=== PATIENT | male | born 1950 | race Caucasian/White ===

== ENCOUNTER → 2016-08-29 | Outpatient (CLI) | payer OTHER ==
[~2016-08-29] MED LIST: IOPAMIDOL (ISOVUE-300) 50 ML VIAL IV ONE
--- NOTE | 2016-08-29 12:23 | CT ---
CT abdomen with IV contrast dated August 29, 2016 Indication: Hepatocellular carcinoma. Evaluate response to TACE of segment 4A lesion. Comparison: CT of the abdomen dated March 29, 2016 and June 15, 2016. Technique: The abdomen was scanned during arterial, portal venous phase and following a 5-minute yandel y following the uneventful intravenous administration of 90 mL Isovue-300. Dose reduction techniques were utilized. Findings: No residual hypervascular lesion on the arterial phase. The dense lobulated Lipiodol versus dystrophic calcification has increased in size since May 2016, and now conforms to the size of t he hypervascular lesion on the March 2016 study. The dense staining/calcification in the anterior se gment right lobe of the liver (segment 4) now measures 2.9 x 2.1 cm on image 44 of series 6. No new hypervascular lesion. A benign 1-cm fluid attenuation cyst in the right lobe of the liver is u nchanged. New nonocclusive thrombus has developed in the undivided left portal vein along the medial margin of the treated lesion (best demonstrated on images 46 through 56 of series 6). The intrahepatic portal v enous system is otherwise widely patent. The eccentric nonocclusive thrombus in the periphery of the splenic vein near the splenic hilum has nearly completely resolved and the nonocclusive thrombus at t he confluence of the superior mesenteric vein and splenic vein is unchanged. The nodular cirrhotic contour of the liver, numerous portosystemic collaterals, and marked splenomega ly are unchanged. The spleen measures 22 cm craniocaudal x 8.7 x 16 cm with a splenic index of 1592. Mesenteric edema is unchanged. No ascites has developed. The pancreas, adrenal glands, and kidneys are normal. No nephrolithiasis or hydroureteronephrosis. The bowel pattern is normal. No bowel wall edema or evidence of portal colopathy. Lung bases are clear. No pleural effusion. Heart size is normal. The abdominal aorta is normal calibe r with minimal calcified plaque. No bone lesions. Impression: 1. No evidence of residual enhancing hepatoma. The segment 4 lesion has either been retreated with L ipiodol or has undergone dystrophic calcification since May 2016. 2. No new lesion suspicious for hepatoma. 3. Cirrhosis, splenomegaly, and mild mesenteric edema are unchanged. 4. 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 5. 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 6. No evidence of metastatic disease or acute intra-abdominal process.
== END ==
LOC: FIMAGING 09:06
DX: Z85.05 Personal history of malignant neoplasm of liver (principal); K74.60 Unspecified cirrhosis of liver; R16.1 Splenomegaly, not elsewhere classified; R60.9 Edema, unspecified; I81 Portal vein thrombosis
CPT/HCPCS: 74160; Q9967

== ENCOUNTER → 2016-12-26 | Outpatient (CLI) | payer OTHER | LOC: FIMAGING 14:57 | PROVIDERS: ATTEND Internal Medicine Gastroenterology | DX: Z12.2 Encounter for screening for malignant neoplasm of respiratory organs (principal); R91.1 Solitary pulmonary nodule; C22.0 Liver cell carcinoma ==

== ENCOUNTER 2017-04-04 13:37 | Emergency (ER) | payer OTHER ==
[2017-04-04 14:55] LABS: % IMMATURE GRANULYOCYTES 0.5 % (0.0-1.1); ABSOLUTE IMMATURE GRANULOCYTES 0.03 10^3/uL (0.00-0.10); ADD DIFF? NO; ADD MORPH? NO; ADD SCAN? NO; ATYPICAL LYMPHOCYTE FLAG 0 (0-99); FRAGMENT RBC FLAG 0 (0-99); HEMATOCRIT 39.6 % (40.0-51.0); HEMOGLOBIN 13.4 g/dL (13.7-17.5); LEFT SHIFT FLG 0 (0-99); LIPEMIA HEMOLYSIS FLAG 90 (0-99); MEAN CELL HEMOGLOBIN 31.8 pg (27.9-34.1); MEAN CELL HEMOGLOBIN CONCENTR. 33.8 g/dL (32.4-36.7); MEAN CELL VOLUME 93.8 fL (81.5-99.8); MEAN PLATELET VOLUME 12.7 fL (8.7-11.7); PLATELET CLUMPS FLAG 0 (0-99); PLATELET COUNT 55 10^3/uL (150-400); RED BLOOD CELL COUNT 4.22 10^6/uL (4.40-6.38); RED CELL DISTRIBUTION WIDTH 16.7 % (11.5-15.2)
[2017-04-04 15:03] LABS: ALANINE AMINOTRANSFERASE 196 IU/L (21-72); ALKALINE PHOSPHATASE 189 IU/L (38-126); ANION GAP 9 mEq/L (8-16); ASPARTATE AMINOTRANSFERASE 182 IU/L (17-59); BILIRUBIN,TOTAL 5.7 mg/dL (0.1-1.4); BILIRUBIN-CONJUGATED 1.8 mg/dL (0.0-0.5); BILIRUBIN-UNCONJUGATED 3.9 mg/dL (0.0-1.1); CALCIUM 8.2 mg/dL (8.5-10.4); CARBON DIOXIDE 21 mEq/l (22-31); CHLORIDE 106 mEq/L (97-110); CREATININE 0.8 mg/dL (0.7-1.3); GLOMERULAR FILTRATION RATE > 60; GLUCOSE 86 mg/dL (70-100); POTASSIUM 3.6 mEq/L (3.5-5.2); SODIUM 136 mEq/L (134-144)
--- NOTE | 2017-04-04 15:08 | EDPHY ---
H & P Time Seen by Provider: 04/04/17 14:44 HPI/ROS: CHIEF COMPLAINT: Abdominal distention HISTORY OF PRESENT ILLNESS: 66-year-old male with hepatocellular carcinoma presents with abdominal distention. 3 days ago he had a tase procedure and intra arterial chemotherapy. Since then he has had abdominal distension. The distention is moderate and is associated with frequent hiccups. He denies abdominal pain, fever, vomiting or diarrhea. He usually receives his care at the [facility]. REVIEW OF SYSTEMS: Constitutional: No fever, no chills Eyes: No visual changes ENT: No sore throat Respiratory: No cough, no shortness of breath Cardiac: No chest pain Genitourinary: No hematuria, no dysuria Musculoskeletal: No leg pain or swelling Skin: No rash Neurological: No headache, no weakness Psychiatric: No depression Past Medical/Surgical History: Hepatocellular carcinoma Social History: Smoking Status: Never smoked Physical Exam: General Appearance: Alert, pleasant Eyes: Pupils equal and round, no conjunctival pallor or injection ENT, Mouth: Mucous membranes moist Neck: Normal inspection Respiratory: Lungs are clear to auscultation Cardiovascular: Regular rate and rhythm Gastrointestinal: Abdomen is soft, distended, no tenderness, hyperactive bowel sounds Neurological: A&O, nonfocal exam Skin: Warm and dry, no rash Extremities: Nontender, no pedal edema Psychiatric: Mood and affect normal Constitutional: Initial Vital Signs Temperature (C) 37.1 C 04/04/17 13:52 Heart Rate 98 04/04/17 13:52 Respiratory Rate 18 04/04/17 13:52 Blood Pressure 131/84 H 04/04/17 13:52 O2 Sat (%) 93 04/04/17 13:52 O2 Delivery Mode Room Air O2 (L/minute) 2 Allergies/Adverse Reactions: No Known Allergies Allergy (Verified 04/04/17 13:50) Home Medications: Medication Instructions Recorded Herbals/Supplements -Info Only 1 ea PO DAILY 02/11/16 Lactulose [Cephulac 20 gm/30 ml 20 gm PO BID 02/11/16 oral soln (*)] Levothyroxine [Synthroid 150 mcg 150 mcg PO HS 02/11/16 (*)] Magnesium Oxide [Magnesium Oxide 400 mg PO Q2D 02/11/16 400 mg (*)] Multivitamins [Multivitamin (*)] 1 each PO DAILY 02/11/16 Leiter-3 Fatty Acids [Fish Oil 1000 1,000 mg PO BID 02/11/16 mg (*)] Omeprazole [Prilosec 20 mg] 20 mg PO HS 02/11/16 Sildenafil Citrate [Viagra] 100 mg PO DAILY PRN 02/11/16 Testosterone IM [Testosterone 0.25 ml IM Q21D 02/11/16 100mg/ml IM inj (*)] Metoclopramide HCl 04/04/17 Ms Contin 04/04/17 Medical Decision Making - Diagnostics Imaging Results: Imaging Impressions Abdomen Ultrasound 04/04/17 15:08 Impression: 1. Small amount of ascites. 2. Cirrhosis with small nodular coarse hepatic parenchyma which limits evaluation for focal lesions. Consider additional imaging if clinically indicated. 3. Patent main portal vein. 4. Splenomegaly and splenic varices. 5. No hydronephrosis. 6. Previous cholecystectomy with common bile duct 9 mm. Findings discussed with Emergency Department physician, Hannah Alcantar, at 1629 hours, 04/04/2017. Final report concurs with initial preliminary interpretation. E:jm Chest X-Ray 04/04/17 15:16 Impression: 1. Possibly a new upper sternal stress fracture. Consider CT or MRI for further evaluation. 2. If the patient receives a CT, evaluation for interstitial lung disease can be performed at the same time using HRCT technique. 3. Suspicious for splenomegaly. Abdomen X-Ray 04/04/17 16:36 Impression: 1. Nonspecific air-filled distention of mid abdominal small bowel loop. 2. Suspect ascites. ED Course/Re-evaluation: d/w Dr. Zambrano's RN--requests abdominal ultrasound, chest x-ray and labs. 16:45 Reassessed patient. Continues to deny abdominal pain. He still feels abdominal bloating and is mainly concerned about the hiccups. Relayed imaging results. Plan for abdominal x-rays. 18:[address] Mccain, engineering operations leader for Dr. Zambrano. Reviewed lab/imaging results. LFTs are slightly higher than before the procedure. Ok for d/c home. Would like the patient to follow up in the morning for repeat lab work. Return soon for worsening symptoms. I spoke with the patient and he is very happy to go home. He will follow up tomorrow as planned. Differential Diagnosis: Differential diagnosis includes though it is not limited to appendicitis, SBP, cholecystitis, diverticulitis, pyelonephritis, bowel perforation, small bowel obstruction. - Data Points Laboratory Results: Laboratory Results 04/04/17 14:30 04/04/17 14:30 04/04/17 04/04/17 04/04/17 14:30 14:30 14:30 WBC 5.61 10^3/uL 10^3/uL (3.80-9.50) RBC 4.22 10^6/uL L 10^6/uL (4.40-6.38) Hgb 13.4 g/dL L g/dL (13.7-17.5) Hct 39.6 % L % (40.0-51.0) MCV 93.8 fL fL (81.5-99.8) MCH 31.8 pg pg (27.9-34.1) MCHC 33.8 g/dL g/dL (32.4-36.7) RDW 16.7 % H % (11.5-15.2) Plt Count 55 10^3/uL L 10^3/uL (150-400) MPV 12.7 fL H fL (8.7-11.7) Neut % (Auto) 82.4 % H % (39.3-74.2) Lymph % (Auto) 4.6 % L % (15.0-45.0) [place] % (Auto) 11.4 % % (4.5-13.0) Eos % (Auto) 0.9 % % (0.6-7.6) Baso % (Auto) 0.2 % L % (0.3-1.7) Nucleat RBC Rel Count 0.0 % % (0.0-0.2) Absolute Neuts (auto) 4.62 10^3/uL 10^3/uL (1.70-6.50) Absolute Lymphs (auto) 0.26 10^3/uL L 10^3/uL (1.00-3.00) Absolute Monos (auto) 0.64 10^3/uL 10^3/uL (0.30-0.80) Absolute Eos (auto) 0.05 10^3/uL 10^3/uL (0.03-0.40) Absolute Basos (auto) 0.01 10^3/uL L 10^3/uL (0.02-0.10) Absolute Nucleated RBC 0.00 10^3/uL 10^3/uL (0-0.01) Immature Gran % 0.5 % % (0.0-1.1) Immature Gran # 0.03 10^3/uL 10^3/uL (0.00-0.10) PT 22.3 SEC H SEC (12.0-15.0) INR 1.94 H (0.83-1.16) Sodium 136 mEq/L mEq/L (134-144) Potassium 3.6 mEq/L mEq/L (3.5-5.2) Chloride 106 mEq/L mEq/L (97-110) Carbon Dioxide 21 mEq/l L mEq/l (22-31) Anion Gap 9 mEq/L mEq/L (8-16) BUN 19 mg/dL mg/dL (7-23) Creatinine 0.8 mg/dL mg/dL (0.7-1.3) Estimated GFR > 60 Glucose 86 mg/dL mg/dL (70-100) Calcium 8.2 mg/dL L mg/dL (8.5-10.4) Total Bilirubin 5.7 mg/dL H mg/dL (0.1-1.4) Conjugated Bilirubin 1.8 mg/dL H mg/dL (0.0-0.5) Unconjugated Bilirubin 3.9 mg/dL H mg/dL (0.0-1.1) AST 182 IU/L H IU/L (17-59) ALT 196 IU/L H IU/L (21-72) Alkaline Phosphatase 189 IU/L H IU/L (38-126) Total Protein 6.0 g/dL L g/dL (6.3-8.2) Albumin 3.0 g/dL L g/dL (3.5-5.0) Lipase 25.0 IU/L IU/L (23-300) Departure - Departure Disposition: Home, Routine, Self-Care Clinical Impression: Abdominal distension Condition: Good Instructions: Abdominal Pain (ED) Additional Instructions: 1. Follow up with Dr. Zambrano's office tomorrow morning as we discussed for repeat evaluation. 2. Have your blood drawn tomorrow morning. Take the lab slip. 3. Return to the emergency department for abdominal pain, fever, vomiting, or other concerns. Referrals: Jessy Sheth [Primary Care Provider] - As per Instructions BRITTANIE ZAMBRANO [Non Staff Provider ()] - As per Instructions
[2017-04-04 18:19] LABS: INR 1.94 (0.83-1.16); PROTIME(PATIENT) 22.3 SEC (12.0-15.0)
[2017-04-04 18:55] VITALS: BP 121/76; PULSE 91; RESP 18; TEMP 98.2; O2SAT 94
== END 2017-04-04 18:57 | disposition home or self-care (01) ==
DX: R14.0 Abdominal distension (gaseous) (principal)

== ENCOUNTER 2017-09-21 16:37 | Inpatient (IN) | payer OTHER ==
[2017-09-21] MEDS ORDERED: NS 1,000 ML IV ONE ×2 (17:34→21:08)
--- NOTE | 2017-09-21 17:38 | EDPHY ---
H & P Time Seen by Provider: 09/21/17 16:48 HPI/ROS: Chief complaint. Shortness of breath HPI. 67-year-old male presents emergency department with shortness of breath for 1-2 days. Patient has metastatic liver disease. His oncologist is at [facility], [place]. He had a thoracentesis 3-4 days ago for pleural effusion. He also has ascites. He was better however now again he has exertional dyspnea. He has some generalized upper abdominal discomfort. No nausea vomiting or diarrhea. No illness including fever or cough. Patient has a history of liver cancer with cirrhosis and pleural effusion. He tells me that he is not sick again without fever cough. He has no chest pain. No nausea or vomiting. Apparent decreased oral intake. He tells me he has urinated only 1 time in the past 24 hr. ROS Constitutional. Generalized weakness Eyes. no problems with vision ENT. no sore throat, no nasal drainage Cardiovascular. no chest pain Respiratory. Exertional dyspnea Abdominal. Abdominal distension and upper abdominal discomfort . no problems urinating MS. no calf pain/swelling, no neck/back pain, no joint pain Skin. no rash Lymph. no swollen glands Neuro. Difficulty walking secondary to shortness of breath Past Medical/Surgical History: Past medical history liver cancer, hepatitis-C, encephalopathy, cirrhosis, cholecystectomy, appendectomy, recent thoracentesis Social History: , nonsmoker, no alcohol Smoking Status: Never smoked Physical Exam: General Appearance: Alert jaundiced male moderate distress vital signs initially show blood pressure 159/83 then subsequently 68/48. At 5:35 p.m. blood pressure 82/45 Eyes: Both eyes are jaundiced. ENT, Mouth: Mucous membranes are moist. Respiratory: No retractions. Decreased breath sounds on left Cardiovascular: Regular rate and rhythm. Gastrointestinal: Abdomen is distended. There is ascites. No masses. No focal areas of tenderness but diffuse upper abdominal tenderness Neurological: Awake and alert, sensory and motor exams grossly normal. Skin: Warm and dry, no rashes. Musculoskeletal: Neck is supple nontender. Extremities symmetrical, full range of motion. Psychiatric: Patient is oriented X 3, there is no agitation. Constitutional: Initial Vital Signs Temperature (C) 36.7 C 09/21/17 16:41 Heart Rate 96 09/21/17 16:41 Respiratory Rate 22 H 09/21/17 16:41 Blood Pressure 159/83 H 09/21/17 16:41 O2 Sat (%) 93 09/21/17 16:41 O2 Delivery Mode Room Air Allergies/Adverse Reactions: No Known Allergies Allergy (Verified 09/21/17 16:39) Home Medications: Medication Instructions Recorded Magnesium Oxide [Magnesium Oxide 400 mg PO BID 02/11/16 400 mg (*)] Herbals/Supplements -Info Only 1 ea PO DAILY 09/22/17 Lactulose 20 gm PO QID PRN 09/22/17 Lidocaine/Prilocaine [Emla Cream 1 junior TP PRN PRN 09/22/17 (RX)] Multivitamins [Multivitamin (*)] 1 each PO DAILY 09/22/17 Omeprazole 20 mg PO DAILY 09/22/17 Rifaximin [Xifaxan 200mg (*)] 550 mg PO BID 09/22/17 Spironolactone [Aldactone 25 MG 100 mg PO DAILY 09/22/17 (*)] Tamsulosin HCl [Flomax 0.4 MG (*)] 0.4 mg PO DAILY 09/22/17 morphINE IR [morphINE IR 15 mg (*)] 15 mg PO DAILY PRN 09/22/17 morphINE SR [MS Contin/Oramorph SR 30 mg PO BID 09/22/17 30 mg (*)] Medical Decision Making - Diagnostics Imaging Results: Chest x-ray interpreted by me shows no evidence of pneumonia or pleural effusion. Large amount air in the stomach Procedures: IV normal saline, monitor Due to the patient's decreased blood pressure after normal blood pressure on presentation I did add serum lactate to the patient's labs. Lactate comes back elevated. Sepsis is declared and patient is given 30 milliliters/kilogram fluid bolus. Blood cultures are obtained. Following lack of response to fluid bolus the patient is then begun on norepinephrine through his port. After blood cultures patient is given a g of Invanz however there is no evidence for infection at this time. ED Course/Re-evaluation: I consulted and discussed case with Dr. Cota who agrees to the admission. He asks me to discussed with the family the patient's wishes for palliative care verses ICU. If the family would prefer palliative care that the patient will be admitted to a [facility] bed. If they request intensive medical care the patient will be admitted to the ICU on pressors. I began to discuss this with the patient however his has left the room to make a phone call. He asks me to wait until the returns to have the discussion. The patient's is gone nearly an hour. When she returns patient, the and I discussed their wishes for care. I had a long conversation with the patient and his regarding their wishes for ICU versus palliative care. The patient continues to have quite low blood pressure on the order of 60/40 despite fluids. The family is somewhat surprised that the patient is so sick. They would like ICU care including pressors for blood pressure. I consulted and discussed the case again with Dr. Cota and expressed the family's wishes for ICU an intensive medical care Patien has a port that we will access. He is given Invanz as antibiotic. He is given norepinephrine for blood pressure as well as the 30 milliliter/ kilogram fluid bolus. Differential Diagnosis: I do not think that this patient has sepsis. He has markedly elevated lactate but I think that the he is dehydrated and likely 3rd spacing. There is no evidence for infection. Patient presented with complaint of shortness of breath which he has had before and apparently has recently had a thoracentesis. I initially thought that the patient had a pleural effusion. His presenting blood pressure was relatively normal and then he became hypotensive in the emergency department precipitating a septic workup with lactate being added to regular labs and then being found to be elevated we pursued the ED sepsis tract. He has end-stage liver disease and markedly abnormal LFTs. He has new renal insufficiency with previous creatinine around 1.2 and now today 2.4. He has ascites as well. Despite volume resuscitation with 30 milliliter/kilogram fluid bolus the patient remains hypotensive and so is begun on norepinephrine according to the family's wishes. Critical Care Time: Critical care time exclusive procedures 1 hr - Data Points Laboratory Results: Laboratory Results 09/21/17 17:15 09/21/17 17:15 Medications Given: Dextrose (Dextrose 50% Syringe) 25 gm IVP PRN PRN PRN Reason: Hypoglycemia Stop: 03/20/18 22:39 Last Admin: 09/22/17 03:21 Dose: 12.5 gm Hydromorphone HCl (Dilaudid) 0.5 - 1 mg IVP Q3HRS PRN PRN Reason: Pain, Severe Unable to Take PO Stop: 10/01/17 22:25 Last Admin: 09/22/17 05:14 Dose: 1 mg Vasopressin/Dextrose (Vasopressin 0.1 Unit/Ml (Premix)) 250 mls @ 24 mls/hr IV CONT MONICA Stop: 03/20/18 22:59 Last Admin: 09/22/17 08:43 Dose: 250 mls Sodium Bicarbonate 150 meq/ (Dextrose) 1,150 mls @ 100 mls/hr IV CONT MONICA Stop: 03/21/18 04:59 Last Admin: 09/22/17 05:13 Dose: 1,150 mls Rifaximin (Xifaxan) 550 mg PO BID MONICA PRN Reason: Protocol Stop: 10/22/17 08:59 Last Admin: 09/22/17 11:39 Dose: Not Given Discontinued Medications Ertapenem (Invanz) 1 gm IVP EDNOW ONE PRN Reason: Protocol Stop: 09/21/17 20:19 Last Admin: 09/21/17 20:45 Dose: 1 gm Furosemide (Lasix Injection) 10 mg IVP ONCE ONE Stop: 09/22/17 03:59 Last Admin: 09/22/17 04:59 Dose: Not Given Sodium Chloride (Ns) 1,000 mls @ 0 mls/hr IV EDNOW ONE; Wide Open PRN Reason: Protocol Stop: 09/21/17 17:35 Last Admin: 09/21/17 18:05 Dose: 1,000 mls Sodium Chloride (Ns) 2,200 mls @ 4,400 mls/hr 30 ml/kg infuse over 30 min ( 2200 ml) IV EDNOW ONE PRN Reason: Protocol Stop: 09/21/17 19:34 Last Admin: 09/21/17 19:15 Dose: 2,200 mls Norepinephrine/Sodium Chloride (Norepinephrine 8 Mcg/Ml (Premix)) 500 mls @ 0 mls/hr IV EDNOW ONE; Titrate PRN Reason: Protocol Stop: 09/21/17 20:19 Last Admin: 09/21/17 21:10 Dose: 500 mls Sodium Chloride (Ns) 1,000 mls @ 250 mls/hr IV EDNOW ONE PRN Reason: Protocol Stop: 09/22/17 01:07 Last Admin: 09/21/17 21:11 Dose: 1,000 mls Norepinephrine/Sodium Chloride (Norepinephrine 8 Mcg/Ml (Premix)) 500 mls @ 0 mls/hr IV CONT MONICA; Titrate PRN Reason: Protocol Stop: 03/20/18 22:59 Last Admin: 09/21/17 22:37 Dose: 500 mls Sodium Chloride (Ns) 1,000 mls @ 100 mls/hr IV CONT MONICA Stop: 03/20/18 22:29 Last Admin: 09/21/17 22:39 Dose: 1,000 mls Albumin Human (Albumin 25 % (Premix)) 50 mls @ 0 mls/hr IV ONCE ONE PRN Reason: As Directed Stop: 09/21/17 22:45 Last Admin: 09/21/17 22:58 Dose: 50 mls Norepinephrine/Sodium Chloride (Norepinephrine 8 Mcg/Ml (Premix)) 500 mls @ 0 mls/hr IV CONT MONICA; Titrate PRN Reason: Protocol Stop: 03/21/18 03:29 Last Admin: 09/22/17 03:15 Dose: 500 mls Albumin Human (Albumin 25 % (Premix)) 50 mls @ 0 mls/hr IV ONCE ONE PRN Reason: As Directed Stop: 09/22/17 04:00 Last Admin: 09/22/17 04:31 Dose: 50 mls Calcium Gluconate 2 gm/ (Dextrose) 70 mls @ 140 mls/hr IV ONCE ONE Stop: 09/22/17 05:20 Last Admin: 09/22/17 05:13 Dose: 70 mls Lorazepam (Ativan Injection) 0.25 mg IVP ONCE ONE Stop: 09/22/17 05:22 Last Admin: 09/22/17 05:32 Dose: 0.25 mg Departure - Departure Disposition: [facility] Clinical Impression: Elevated serum lactate dehydrogenase, Possible sepsis, Liver cancer, primary, with metastasis from liver to other site Hypotension Qualifiers: Hypotension type: unspecified hypotension type Qualified Code(s): I95.9 - Hypotension, unspecified Condition: Fair
[2017-09-21 17:48] LABS: INR 2.65 (0.83-1.16); PROTIME(PATIENT) 28.2 SEC (12.0-15.0)
[2017-09-21 17:51] LABS: PLATELET COUNT 48 10^3/uL (150-400)
[2017-09-21] MEDS ORDERED: NS 2,200 ML IV ONE (19:05)
[2017-09-21] MEDS ORDERED: NOREPINEPHRINE/NS 500 ML IV ONE (20:18)
[2017-09-21] MEDS ORDERED: ERTAPENEM 1 GM VIAL IVP ONE (20:18)
[2017-09-21] MEDS ORDERED: D50W 25 GM/50 ML SYR IVP ONE (21:28)
[2017-09-21] MEDS: D50W 25 GM/50 ML SYR IVP PRN ×2 (21:30→22:00)
[2017-09-21] MEDS ORDERED: ONDANSETRON 4 MG/2 ML VIAL IVP PRN (22:26)
[2017-09-21] MEDS ORDERED: ACETAMINOPHEN 325 MG TAB PO PRN (22:26)
[2017-09-21] MEDS ORDERED: oxyCODONE IR 5 MG TAB PO PRN (22:26)
[2017-09-21] MEDS ORDERED: NS 1,000 ML IV SCH (22:30)
[2017-09-21] MEDS ORDERED: ALBUMIN 25% 50 ML IV ONE (22:44)
[2017-09-21] MEDS: VASOPRESSIN/DEXTROSE 250 ML IV SCH (22:55)
[2017-09-21] MEDS ORDERED: NOREPINEPHRINE/NS 500 ML IV SCH (23:00)
[2017-09-21] MEDS: NOREPINEPHRINE/NS 500 ML IV SCH (23:55)
[2017-09-22 00:13] LABS: PLATELET COUNT 50 10^3/uL (150-400)
[2017-09-22 00:22] LABS: INR 3.58 (0.83-1.16); PROTIME(PATIENT) 35.5 SEC (12.0-15.0)
--- NOTE | 2017-09-22 00:34 | PDGENHP ---
History and Physical - Chief Complaint dyspnea, abdominal distension - History of Present Illness Source - patient provides history and appears reliable. at bedside and supplements details. EMR reviewed and case discussed with accepting provider. CC - dyspnea, abdominal distension HPI - Pleasant 67 yo M with pmhx significant for HCV cirrhosis with sequelae ( thrombocytopenia, coagulopathy, hx esophageal varices and portal hypertensive gastropathy), liver ca on immunotherapy followed at [facility], hypothyroidism, GERD who presents to ED today with 2-3 days progressive dyspnea on exertion. Patient underwent paracentesis at the [facility] 4 days ago. He reports this was a therapeutic tap and 3.5 L of fluid was removed. He reports increased abdominal distension and discomfort since that time but no significant pain from baseline. He denies any nausea/vomiting/diarrhea. He denies fevers/chills/ sweats. He denies cough, rhinorrhea, sore throat. no known sick contacts. + ADHIKARI. He is compliant with rifaximin and lactulose. Has had decreased oral intake today but reports otherwise had been tolerating liquids well. Decreased UOP and nothing since this AM. multiple soft stools daily without reports of melena or hematochezia. Patient also has been noted to be more jaundiced in the last several days as well. Today patient had significant generalized weakeness and had to crawl out of the home per his . History Information - Allergies/Home Medication List Allergies/Adverse Reactions: No Known Allergies Allergy (Verified 09/21/17 16:39) Home Medications: Herbals/Supplements -Info Only 1 ea PO DAILY 02/11/16 [Last Taken Unknown] Lactulose [Cephulac 20 gm/30 ml oral soln (*)] 20 gm PO BID 02/11/16 [Last Taken 02/10/16] Levothyroxine [Synthroid 150 mcg (*)] 150 mcg PO HS 02/11/16 [Last Taken ] Magnesium Oxide [Magnesium Oxide 400 mg (*)] 400 mg PO Q2D 02/11/16 [Last Taken 02/09/16] Multivitamins [Multivitamin (*)] 1 each PO DAILY 02/11/16 [Last Taken 02/10/16] [place]-3 Fatty Acids [Fish Oil 1000 mg (*)] 1,000 mg PO BID 02/11/16 [Last Taken 02/10/16] Omeprazole [Prilosec 20 mg] 20 mg PO HS 02/11/16 [Last Taken 02/10/16] Sildenafil Citrate [Viagra] 100 mg PO DAILY PRN 02/11/16 [Last Taken Unknown] Testosterone IM [Testosterone 100mg/ml IM inj (*)] 0.25 ml IM Q21D 02/11/16 [ Last Taken 01/28/16] Metoclopramide HCl 04/04/17 [Last Taken Unknown] Ms Contin 04/04/17 [Last Taken Unknown] Lasix 09/21/17 [Last Taken Unknown] Spironolactone 09/21/17 [Last Taken Unknown] Xifaxan 09/21/17 [Last Taken Unknown] morphINE 09/21/17 [Last Taken Unknown] I have personally reviewed and updated: family history, medical history, social history, surgical history - Past Medical History Additional medical history: HCV Cirrhosis, liver cancer, history of hepatic encephalopathy, portal hypertensive gastropathy, esophageal varices status post banding, history of anemia, thrombocytopenia, coagulopathy, hypothyroidism, GERD - Surgical History Additional surgical history: Cholecystectomy, open appendectomy, paracentesis, EGD with banding, ERCP. - Family History Additional family history: No family history of liver cancer or other chronic illnesses reported. - Social History Smoking Status: Never smoked Alcohol Use: None Drug Use: None Additional social history: Patient is and lives with his . No current use of tobacco drugs or alcohol. Patient notes a very remote history of experimentation in youth. COR - limited resuscitation. Patient does not want any cardiac resuscitation but amenable to intubation if needed. Review of Systems Review of Systems: ROS: 10pt was reviewed & negative except for what was stated in HPI & below Constitutional: Denies: chills, fever, recent illness EENMT: Reports: no symptoms. Denies: ear pain, blurred vision, nose congestion , sore throat Cardiac: Reports: no symptoms. Denies: chest pain, edema, palpitations Respiratory: Reports: shortness of breath. Denies: cough, orthopnea, wheezing Gastrointestinal: Reports: abdominal distention, diarrhea (Loose stools with lactulose no acute changes). Denies: vomitting, black stools, rectal bleeding, nausea Genitourinary: Reports: no symptoms, other (Decreased urinary output. No on since early a.m..) Muscolosketal: Denies: back pain, muscle stiffness Skin: Reports: other (Increased jaundice from baseline). Denies: rash Neurological: Reports: weakness (Generalized). Denies: anxiety, numbness, seizure, tingling Hematologic/Lymphatic: Reports: anemia, easy bruising. Denies: blood clots Physical Exam Physical Exam: Selected Entries 09/21/17 16:41 Blood Pressure Automatic Method Heart Rate 96 Respiratory 22 H Rate O2 Sat (%) 93 Temperature (C) 36.7 C Blood Pressure 159/83 H Mean Arterial 108 H Pressure (MAP) O2 Delivery Room Air Mode Temperature Oral Source Temp Pulse Resp BP Pulse Ox 36.4 C 98 25 H 90/57 L 97 09/21/17 21:25 09/21/17 23:00 09/21/17 23:00 09/21/17 23:00 09/21/17 23:00 O2 (L/minute) 2 Constitutional: chronically ill appearing, uncomfortable, other (No acute distress. Chronically ill thin jaundice adult male is lying quietly in bed. at bedside) Eyes: PERRL, EOMI, icteric sclera Ears, Nose, Mouth, Throat: dry mucous membranes, other (No nasal discharge.) Cardiovascular: regular rate and rhythym, no murmur, rub, or gallop, pulses symmetric bilaterally, edema (Trace lower extremity edema minimal), other ( Slightly distant heart sounds) Peripheral Pulses: 1+: dorsalis-pedis (R), dorsalis-pedis (L) Respiratory: no respiratory distress (Intermittent increased work of breathing with movement.), no rales or rhonchi, clear to auscultation, No inspiratory crackles Gastrointestinal: normoactive bowel sounds, ascites, distension, other ( Distended abdomen with positive bowel sounds. No rebound or guarding. Minimal complaints of pain with palpation. Positive fluid sign), No hidalgo's sign, No guarding Genitourinary: no bladder tenderness, No talbot in urethra Skin: warm, other (Jaundice), No rash Musculoskeletal: generalized weakness, other (Moves all extremities while lying in bed. Generalized weakness.), No pain with ROM Neurologic: AAOx3, weakness (Generalized), other (Positive asterixis, grossly nonfocal exam.), No facial droop Psychiatric: interacting appropriately, not anxious, not encephalopathic, thought process linear, No poor insight, No poor judgement, No poor memory Lab Data & Imaging Review 09/21/17 23:50 09/21/17 23:50 Laboratory Tests 09/21/17 09/21/17 09/21/17 17:15 17:15 17:15 WBC 6.07 RBC 3.94 L Hgb 14.4 Hct 41.8 MCV 106.1 H MCH 36.5 H MCHC 34.4 RDW 18.1 H Plt Count 48 L MPV TNP Neut % (Auto) 96.3 H Lymph % (Auto) 1.3 L [place] % (Auto) 1.0 L Eos % (Auto) 0.2 L Baso % (Auto) 0.2 L Nucleat RBC Rel Count 0.0 Absolute Neuts (auto) 5.85 Absolute Lymphs (auto) 0.08 L Absolute Monos (auto) 0.06 L Absolute Eos (auto) 0.01 L Absolute Basos (auto) 0.01 L Absolute Nucleated RBC 0.00 Immature Gran % 1.0 Immature Gran # 0.06 PT 28.2 H INR 2.65 H APTT 42.4 H Sodium 129 L Potassium 5.3 H Chloride 97 Carbon Dioxide 10 L Anion Gap 22 H BUN 56 H Creatinine 2.4 H Estimated GFR 27 Glucose 51 L POC Glucose Calcium 8.9 Total Bilirubin 37.6 H Conjugated Bilirubin 34.4 H Unconjugated Bilirubin 3.2 H AST 280 H ALT 113 H Alkaline Phosphatase 423 H Ammonia Total Protein 7.1 Albumin 3.1 L Lipase 56 09/21/17 09/21/17 09/21/17 18:17 21:16 21:54 WBC RBC Hgb Hct MCV MCH MCHC RDW Plt Count MPV Neut % (Auto) Lymph % (Auto) [place] % (Auto) Eos % (Auto) Baso % (Auto) Nucleat RBC Rel Count Absolute Neuts (auto) Absolute Lymphs (auto) Absolute Monos (auto) Absolute Eos (auto) Absolute Basos (auto) Absolute Nucleated RBC Immature Gran % Immature Gran # PT INR APTT Sodium Potassium Chloride Carbon Dioxide Anion Gap BUN Creatinine Estimated GFR Glucose POC Glucose 43 L 79 Calcium Total Bilirubin Conjugated Bilirubin Unconjugated Bilirubin AST ALT Alkaline Phosphatase Ammonia 21.0 Total Protein Albumin Lipase 09/21/17 22:23 WBC RBC Hgb Hct MCV MCH MCHC RDW Plt Count MPV Neut % (Auto) Lymph % (Auto) [place] % (Auto) Eos % (Auto) Baso % (Auto) Nucleat RBC Rel Count Absolute Neuts (auto) Absolute Lymphs (auto) Absolute Monos (auto) Absolute Eos (auto) Absolute Basos (auto) Absolute Nucleated RBC Immature Gran % Immature Gran # PT INR APTT Sodium Potassium Chloride Carbon Dioxide Anion Gap BUN Creatinine Estimated GFR Glucose POC Glucose 85 Calcium Total Bilirubin Conjugated Bilirubin Unconjugated Bilirubin AST ALT Alkaline Phosphatase Ammonia Total Protein Albumin Lipase WBC 25.63 10^3/uL (3.80-9.50) H D 09/21/17 23:50 RBC 3.29 10^6/uL (4.40-6.38) L 09/21/17 23:50 Hgb 12.1 g/dL (13.7-17.5) L 09/21/17 23:50 POC Hgb 16.0 gm/dL (13.7-17.5) 09/21/17 17:04 Hct 35.3 % (40.0-51.0) L 09/21/17 23:50 POC Hct 47 % (40-51) 09/21/17 17:04 MCV 107.3 fL (81.5-99.8) H 09/21/17 23:50 MCH 36.8 pg (27.9-34.1) H 09/21/17 23:50 MCHC 34.3 g/dL (32.4-36.7) 09/21/17 23:50 RDW 18.1 % (11.5-15.2) H 09/21/17 23:50 Plt Count 50 10^3/uL (150-400) L 09/21/17 23:50 MPV TNP 09/21/17 23:50 Neut % (Auto) Not Reported 09/21/17 23:50 Lymph % (Auto) Not Reported 09/21/17 23:50 [place] % (Auto) Not Reported 09/21/17 23:50 Eos % (Auto) Not Reported 09/21/17 23:50 Baso % (Auto) Not Reported 09/21/17 23:50 Nucleat RBC Rel Count 0.0 % (0.0-0.2) 09/21/17 23:50 Absolute Neuts (auto) Not Reported 09/21/17 23:50 Absolute Lymphs (auto) Not Reported 09/21/17 23:50 Absolute Monos (auto) Not Reported 09/21/17 23:50 Absolute Eos (auto) Not Reported 09/21/17 23:50 Absolute Basos (auto) Not Reported 09/21/17 23:50 Absolute Nucleated RBC 0.00 10^3/uL (0-0.01) 09/21/17 23:50 Immature Gran % Not Reported 09/21/17 23:50 Immature Gran # Not Reported 09/21/17 23:50 Platelet Estimate DECREASED (ADEQ) L 09/21/17 17:15 PT 35.5 SEC (12.0-15.0) H 09/21/17 23:50 INR 3.58 (0.83-1.16) H 09/21/17 23:50 APTT 53.7 SEC (23.0-38.0) H 09/21/17 23:50 Puncture Site VENOUS 09/21/17 21:39 Patient Temperature 37.0 DEGREES 09/21/17 21:39 VBG pH 7.19 (7.31-7.42) L* 09/21/17 21:39 VBG HCO3 9 mEQ/L (22-26) L 09/21/17 21:39 VBG Total CO2 10 mEq/L (23-27) L 09/21/17 21:39 VBG O2 Saturation 70 % (65-75) 09/21/17 21:39 VBG Base Excess -17.8 mEq/L (-2.5-2.5) L 09/21/17 21:39 VBG Lactic Acid 8.1 mmol/L (0.7-2.1) H 09/21/17 23:50 Mixed VBG pCO2 24 mmHg (40-44) L 09/21/17 21:39 Mixed VBG pO2 49 mmHg (35-40) H 09/21/17 21:39 Mixed VBG O2 Saturation 70 % (65-75) 09/21/17 21:39 POC Sodium 129 mEq/L (135-145) L 09/21/17 17:04 Sodium 129 mEq/L (135-145) L 09/21/17 17:15 POC Potassium 5.0 mEq/L (3.3-5.0) 09/21/17 17:04 Potassium 5.3 mEq/L (3.5-5.2) H 09/21/17 17:15 POC Chloride 100 mEq/L (97-110) 09/21/17 17:04 Chloride 97 mEq/L (97-110) 09/21/17 17:15 Carbon Dioxide 10 mEq/l (22-31) L 09/21/17 17:15 Anion Gap 22 mEq/L (8-16) H 09/21/17 17:15 POC BUN 54 mg/dL (7-23) H 09/21/17 17:04 BUN 56 mg/dL (7-23) H 09/21/17 17:15 Creatinine 2.4 mg/dL (0.7-1.3) H 09/21/17 17:15 POC Creatinine 2.5 mg/dL (0.7-1.3) H 09/21/17 17:04 Estimated GFR 27 09/21/17 17:15 Glucose 51 mg/dL (70-100) L 09/21/17 17:15 POC Glucose 85 mg/dL (70-100) 09/21/17 22:23 Calcium 8.9 mg/dL (8.5-10.4) 09/21/17 17:15 Total Bilirubin 37.6 mg/dL (0.1-1.4) H 09/21/17 17:15 Conjugated Bilirubin 34.4 mg/dL (0.0-0.5) H 09/21/17 17:15 Unconjugated Bilirubin 3.2 mg/dL (0.0-1.1) H 09/21/17 17:15 AST 280 IU/L (17-59) H 09/21/17 17:15 ALT 113 IU/L (21-72) H 09/21/17 17:15 Alkaline Phosphatase 423 IU/L (38-126) H 09/21/17 17:15 Ammonia 21.0 uMOL/L (9.0-30.0) 09/21/17 18:17 Total Protein 7.1 g/dL (6.3-8.2) 09/21/17 17:15 Albumin 3.1 g/dL (3.5-5.0) L 09/21/17 17:15 Lipase 56 IU/L (23-300) 09/21/17 17:15 Imaging Review: PA and Lateral Chest X-ray 1711 hours History: Shortness of breath with jaundice. Hepatocellular carcinoma.. Findings: Comparison to 04/04/2017. Heart size and pulmonary vasculature are normal. There is once again poor inspiration with mild compressive changes at the lung bases. There is some gaseous distention of the stomach. Central vascular port is seen with tip in good position in the SVC. Osseous structures are unchanged. Biliary stent is noted right upper quadrant abdomen. There is no pneumothorax. The osseous structures are intact. Impression: 1. Poor inspiration with mild compressive changes at the lung bases. 2. Gaseous distention of the stomach. 3. Interval placement of Central vascular port along with biliary stent. Visualized and Interpreted Chest x-ray results: Yes Chest X-Ray results: no infiltrate, other (Abdominal findings noted for large gastric bubble, no free air under the diaphragm. Ascites) EKG additional interpertation: Tele-sinus rhythm 90s Assessment & Plan Assessment: Assessment plan: Very pleasant 67-year-old gentleman with history of chronic HCV cirrhosis and sequelae, liver cancer undergoing immunotherapy who presents emergency department today with complaints of increasing abdominal distention with main complaint of dyspnea on exertion. #Shock-suspect possibility for septic versus hypovolemic. Less concerning for cardiogenic. Patient did present initially with a normal blood pressure but this quickly decline rapidly. Patient was just given IV fluid bolus in addition to started being started on Levophed with some mild improvements in his blood pressures. Patient seen in the unit and currently requiring addition of vasopressin to maintain blood pressures in the systolics of 80s to 90s. Repeat laboratory studies did show a significant spike in white count from 6 to over 23 K. patient Q sofa score is 2 lactic acid was also noted to be significantly elevated 11 with she has down trended with initiation of IV fluids and pressor support. Patient had blood cultures drawn and ertapenem was initiated. Patient does not have significant abdominal distention but certainly at risk for infection with his history of cirrhosis and recent paracentesis. Will ertapenem. Patient will continue to receive IV fluids suspect a large component of intravascular volume depletion with 3rd spacing. Patient IV fluids and pressors will be supplemented with albumin. Once patient is more stabilized will need to further evaluate and consider an it diagnostic/ therapeutic paracentesis for fluid analysis 1 possible. # acute renal failure - suspect a large component of prerenal injury in setting of intravascular volume depletion and decreased arterial perfusion. At this time lower suspicion for hepatorenal syndrome. Repeat renal panel showing a stable creatinine. Patient since initiation of fluids and pressors has finally produce a small amount of urine. No need for acute dialysis at this time. Will consult Nephrology in the morning for further recommendations while patient is stabilized. Urine studies will be added to currently available sample. # anion gap metabolic acidosis secondary to lactic acidosis-related to sepsis and shock. Downtrending lactate with IV fluids will need to monitor closely. Repeat VBG. # HCV cirrhosis with ascites - continue with IV fluid hydration as addition of albumin on to resuscitation efforts. Once patient is stabilized will need to further evaluate with a paracentesis for both diagnostic and therapeutic purposes. # hyponatremia-suspect largely related to the patient's and intravascular volume depletion although patient does appear to be 3rd spacing. His sodium has improved slightly with IV fluids. Will continue along with pressor support as noted above. Urine studies have been ordered. # hyperkalemia-improved after IV fluids continue to monitor. On telemetry. # hypoglycemia-monitor with Accu-Cheks. After fluid resuscitation transition fluids to D5 if remains unresponsive to D50 bolus. # transaminitis-increasing LFTs likely related to shock liver in addition to patient's cirrhosis will continue to trend. # hyperbilirubinemia-unclear if patient has any obstructive process in play acutely. Patient with longstanding hyperbilirubinemia and jaundice on however appears significantly elevated at this time. Will obtain abdominal ultrasound as possible with significant amount of ascites. GI consultation in the a.m., hepatology if available. Patient reports his primary lav crewman at [facility] is Dr. Ignacia Barrett. . # liver cancer - patient is currently undergoing immunotherapy.Oncologist at [facility]. # thrombocytopenia-related to cirrhosis. No evidence of active bleeding at this time. Monitor patient's H&H. Type and screen.No need to transfuse # coagulopathy - rising INR possibly related to component of shock liver and patient's cirrhosis. Monitor for any bleeding. Hold off on FFP at this time. # microcytic anemia-likely component of chronic disease. Patient without any evidence of active bleeding and does not meet criteria for transfusion. Will monitor H&H in the morning. FEN - continue with normal saline. Electrolytes will be monitored closely and address p.r.n. renal low-salt diet ordered if tolerated. PPX - patient currently hypercoagulable. SCDs if tolerated COR - discussed with the patient and his at bedside. Patient does not desire any cardiac resuscitation. He would be amenable to intubation for for a short period. Dispo - patient admitted to inpatient status in the ICU. He is critically ill and anticipate greater than 2 midnight stay. Consultations in the morning-critical care, nephrology, GI. Will call sooner if patient has any further acute declines. Critical care time 65 min.
[2017-09-22] MEDS: D50W 25 GM/50 ML SYR IVP PRN ×2 (01:45→03:21)
[2017-09-22] MEDS: HYDROmorphONE/DILAUDID 1 MG/ML INJ IVP PRN ×2 (02:47→05:14)
[2017-09-22] MEDS: NOREPINEPHRINE/NS 500 ML IV SCH (03:15)
[2017-09-22] MEDS ORDERED: FUROSEMIDE 20 MG/2 ML VIAL IVP ONE (03:58)
[2017-09-22] MEDS ORDERED: ALBUMIN 25% 50 ML IV ONE (03:59)
--- NOTE | 2017-09-22 04:11 | HOSPPROG ---
Hospitalist Progress Note Assessment/Plan: Night hospitalist follow up note Paged by RN. patient with increased WOB and dyspnea. no hypoxia. SBPs high 90s-100s. IVF discontinued just before my arrival to bedside. Levophed, vasopressin continues. Patient c/o increased abdominal distension. "I need a tap." VS reviewed. Gen - NAD. patient resting in bed. increased WOB with shallow breaths. is alert when woken. CV - distant heart sounds. regular. 90s. Resp - increased WOB. shallow quick breaths. clear at bases and throughout. pt with some upper airway noises faintly wheezing but no stridor. Abd - distended slightly more than initial assessment but still soft. no point ttp. Ext - no LE edema. Neuro - nonfocal moves all extremities. Psych - AAOX4 and cooperative. Plan - low dose lasix preceeded by albumin. titrate down on pressor support as possible. hold IVF at this time. cxr/kub now AM labs in process will follow. Objective: Vital Signs Temp Pulse Resp BP Pulse Ox 36.9 C 93 20 107/64 96 09/22/17 00:00 09/22/17 03:00 09/22/17 03:00 09/22/17 03:00 09/22/17 03:00 Laboratory Results 09/21/17 23:50 09/21/17 23:50 09/20/17 09/21/17 09/22/17 05:59 05:59 05:59 Intake Total 3650 Balance 3650 PT 35.5 SEC (12.0-15.0) H 09/21/17 23:50 INR 3.58 (0.83-1.16) H 09/21/17 23:50 ICD10 Worksheet Patient Problems: Problems Problem Status Onset Pneumonia Acute Severe sepsis Acute
[2017-09-22 04:14] LABS: PLATELET COUNT 57 10^3/uL (150-400)
[2017-09-22 04:22] LABS: INR 3.66 (0.83-1.16); PROTIME(PATIENT) 36.1 SEC (12.0-15.0)
[2017-09-22] MEDS ORDERED: CALCIUM GLUCONATE 2 GM in D5W 50 ML IV ONE (04:51)
[2017-09-22] MEDS ORDERED: LIDOCAINE 2% JELLY 5 ML TUBE TP PRN (05:01)
--- NOTE | 2017-09-22 05:07 | CPEKG ---
Heart Rate: 99 RR Interval: 606 P-R Interval: 185 QRSD Interval: 102 QT Interval: 344 QTC Interval: 442 P Paradise: 49 QRS Paradise: 65 T Wave Paradise: -35 EKG Severity - BORDERLINE ECG - EKG Impression: FAST SINUS ARRHYTHMIA, RATE 85-121 EKG Impression: LOW VOLTAGE IN FRONTAL LEADS EKG Impression: BORDERLINE T ABNORMALITIES, INFERIOR LEADS EKG Impression: COMPARED WITH 10/09/2013 NO SIGNIFICANT CHANGE Electronically Signed By: Batsheva Nuno 22-Sep-2017 13:19:52
[2017-09-22] MEDS: SODIUM BICARBONATE 150 MEQ in D5W 1,000 ML IV SCH ×2 (05:13→17:10)
[2017-09-22] MEDS ORDERED: LORazepam 2 MG/ML INJ IVP ONE (05:21)
--- NOTE | 2017-09-22 06:44 | PDMN ---
Medical Necessity Medical necessity: C/M review: est. > 2 MN LOS for eval and TX of acute shock- suspect septic vs. hypovolemic, acute renal failure, anion gap metabolic acidosis, hyponatremia, hyperlkalemia, hypoglycemia, transaminitis, hyperbilirubinemia, requiring planned planned US abdomen, Infectious Disease consult, echodiogram, ongoing IV vasopressor infusions, IV Sodium bicarb infusion, IV fluids, IV Ertapenem, comorbid HCV cirrhosis with ascites, liver cancer, thrombocytopenia related to cirrhosis, coagulopathy microcytic anemia, history of paracentesis 4 days prior to this admission per H/P.
--- NOTE | 2017-09-22 07:39 | SOAPPROG ---
SOAP Progress Note Assessment/Plan: Assessment: Please see dictation # [id number] SHAILESH- unclear baseline, suspect ATN in setting of recent LVP, septic shock, cirrhotic physiology, Non-oliguric but high risk for worsening and need for CRRT Septic shock- GNR bacteremia, multiple pressors, multiorgan failure Hep C Cirrhosis with Hepatocellular CA, s/p recent immunotherapy (Dr. Zambrano at [facility]) Esoph Varices Met acidosis with high lactate- on bicarb gtt Encephalopathy Coagulopathy Large Ascites I had lengthy discussion with family. Discussed overall severity of his septic shock and likely continued worsening. Discussed need for potential CRRT, mechanical ventilation, increasing pressor requirements. They are discussing as family goals of care. I did try and reach Dr. Zambrano per their request but she was not guest relation officer. Will continue bicarb gtt/Antibiotics/pressors and recheck labs in a few hours, reassess with family to guide decision. Jessy Bangura MD [facility] pager [phone] 09/22/17 07:39 Objective: Vital Signs Temp Pulse Resp BP Pulse Ox 36.9 C 90 24 H 108/59 L 94 09/22/17 00:00 09/22/17 05:00 09/22/17 05:00 09/22/17 05:00 09/22/17 05:00 Microbiology 09/21/17 19:30 Blood Panel (PCR) - Final Blood Enterobacter Cloacae Complex Laboratory Results 09/22/17 04:00 09/22/17 06:26 09/21/17 09/22/17 09/23/17 05:59 05:59 05:59 Intake Total 3650 Balance 3650 PT 36.1 SEC (12.0-15.0) H 09/22/17 04:00 INR 3.66 (0.83-1.16) H 09/22/17 04:00 ICD10 Worksheet Patient Problems: Problems Problem Status Onset Pneumonia Acute Severe sepsis Acute
[2017-09-22] MEDS: VASOPRESSIN/DEXTROSE 250 ML IV SCH ×2 (08:43→18:38)
[2017-09-22] MEDS: NOREPINEPHRINE BITARTRATE 16 MG in D5W 250 ML IV SCH ×2 (09:00→18:38)
--- NOTE | 2017-09-22 09:33 | GCON ---
[f rep st] CONSULTATION INPATIENT NEPHROLOGY CONSULTATION DATE OF CONSULTATION: 09/22/2017 REFERRING PHYSICIAN: Reyna Telles MD REASON FOR CONSULTATION: Acute kidney injury, metabolic acidosis. HISTORY OF PRESENT ILLNESS: The patient is a 67-year-old man with a history of hepatitis C cirrhosis, complicated by esophageal varices, hepatocellular carcinoma, who presented to the emergency room last night with increasing abdominal girth and dyspnea on exertion. He has been followed at the [facility] closely by Dr. Zambrano, where he underwent immunotherapy approximately [address] Telles has asked me to see the patient, given his worsening renal function and his metabolic acidosis. The patient is currently too ill and confused to give me a history, so most of this is obtained from discussing with his as well as reviewing his chart. His tells me that he last had a large-volume paracentesis a few days prior to admission, at which time, she estimates 3-4 L were removed. He has been requiring these about once a month. He was on diuretics prior, but this was stopped at the time of the paracentesis for unclear reasons, but it sounds like it may be because his creatinine was worse. She does not have any known knowledge of his baseline creatinine. He was denying any nausea or vomiting, but was noting some increasing abdominal pain and girth. He did not have any fevers at home. On arrival to the emergency room, he did have evidence of septic shock and required resuscitation in the emergency room. He is now on multiple pressors and has received several liters of IV fluids, and has been started on broad-spectrum antibiotics. His initial blood pressure was in the 150s and then dropped to the 60s while he was in the emergency room, thus prompting the septic shock resuscitation efforts. His blood cultures are now already growing gram-negative rods. He is on ertapenem. He has made approximately 650 cc of urine since arrival. His creatinine was 2.4 on admission, where it remains that level this morning. He has had significant metabolic acidosis with a bicarbonate of 10. His last blood gas showed a pH of 7.21, a bicarbonate of 10, a pCO2 of 25. This was a venous blood gas. His white count initially was 6, but it increased to 33, and his procalcitonin level is 32.6. His lactate initially was 11.1, but has improved to 6.9. He is currently on a bicarbonate drip. REVIEW OF SYSTEMS: Again, the patient is too ill and confused to give me a good history separate from discussing with his . GENERAL: he did not have any fevers or chills, but did have some generalized malaise. Pulmonary: He was reporting some increasing shortness of breath and dyspnea on exertion. CARDIAC : No chest pain. GI: He has had increasing abdominal girth. No nausea or vomiting. He has had some abdominal pain. No bleeding. : No difficulty urinating. His urine has been dark in color. SKIN: He has been more jaundiced lately. No other rash. NEUROLOGIC: He has had encephalopathy that has been chronic and managed, but seems to be worse over the past day. ENDOCRINE: No history of diabetes. PAST MEDICAL HISTORY: 1. Hepatitis C cirrhosis, complicated by esophageal varices, coagulopathy, and hepatocellular carcinoma. He has undergone chemoembolization in the past and most recently started immunotherapy at the [facility] under the care of Dr. Ignacia Zambrano. 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 2. Recent jaundice with plans for an ERCP. 3. Hypothyroidism. 4. GERD. 5. Status post banding of esophageal varices. 6. Status post cholecystectomy. 7. Status post appendectomy. FAMILY HISTORY: They deny any liver disease or kidney disease that they are aware. SOCIAL HISTORY: He is , lives with his . Very involved family. No tobacco or alcohol. OUTPATIENT MEDICATIONS: Included lactulose, levothyroxine, magnesium oxide, multivitamin, fish oil, omeprazole, Viagra, testosterone injections, metoclopramide, MS Contin, Lasix, spironolactone, Xifaxan, and morphine. CURRENT MEDICATIONS: Include norepinephrine drip, rifaximin 550 mg p.o. twice daily, sodium bicarbonate drip at 100 cc an hour, vasopressin drip, ertapenem, Dilaudid p.r.n. PHYSICAL EXAM: Vitals: His temperature is 36.9, his blood pressure is 108/59, his heart rate is 90, saturating 94% on 2 L of oxygen. General: he is still appearing, tachypneic, confused, on oxygen by nasal cannula, on multiple pressors. HEENT: notable for scleral icterus. Mucous membranes are moist. Neck : supple. Chest: His lungs have decreased breath sounds at the bases. poor respiratory effort. CARDIOVASCULAR: Regular rate and rhythm. No rub. Abdomen : notable for tense ascites. Mild tenderness throughout. No rebound or guarding. EXTREMITIES: + edema in his lower extremities. Warm. NEUROLOGIC: Awakens. Follows basic commands, but confused and unable to give details of his history. LABS: His most recent venous blood gas showed a pH of 7.21, a bicarbonate of 10 , a pCO2 of 25. His white blood cell count is 33.5, hemoglobin 12.2, hematocrit 35.2, platelets 57. Sodium 131, potassium 5.1, chloride 102, bicarbonate 11, BUN 57, creatinine 2.4, calcium 7.4, ionized calcium 1.02. Phosphorus 5.8, magnesium 2. Total bilirubin 33.3, conjugated bilirubin 30.7, AST 1251, ALT 308, alkaline phosphatase 261, total protein 5.6, albumin 2.3, procalcitonin 32.68. His INR is 3.66. His urinalysis showed positive bilirubin , 2+ blood, 4+ urobilinogen, 10-15 white blood cells, negative for leukocyte esterase, trace bacteria. Negative for protein, negative for ketones. IMAGING: His chest x-ray showed no acute consolidation. ASSESSMENT AND PLAN: The patient is a 67-year-old man with a history of hepatitis C cirrhosis complicated by esophageal varices and hepatocellular carcinoma with recent immunotherapy and large-volume paracentesis. He now presents with septic shock, worsening renal function, and metabolic acidosis: 1. Acute kidney injury. It is unclear what his baseline renal function is. Discussing with his , however, it appears that his renal function was worsening even prior to this admission, as his diuretics were recently held at the time that he underwent a large-volume paracentesis a few days ago. Thus, he may have developed some degree of underlying hepatorenal syndrome. However, I suspect the most likely contributor at this point is septic shock, leading to acute tubular necrosis in the setting of cirrhotic physiology. He is still making urine at this point; however, I am concerned about his risk for volume overload and his metabolic acidosis. We are trying to manage this with IV bicarbonate; however, he may require CRRT here in the next few hours, if we see continued worsening. I did have a long discussion with the family regarding his overall prognosis, and they are discussing as a family their overall goals of care to help guide our next management. We will get repeat labs here in a few hours to see his lab trend. 2. Metabolic acidosis. He did have an elevated lactate that is consistent with underlying septic shock. This has improved somewhat with fluid resuscitation and improvement of his hemodynamics with vasopressors. We will continue to trend this out. We have him on an IV bicarbonate drip. He may ultimately require CRRT to manage this, if the family chooses to continue aggressive care. 3. Septic shock. He has gram-negative rods in his blood in the setting of underlying ascites. I suspect he may have an SBP as his initial inciting event. He is on ertapenem and is requiring multiple pressors in the ICU with evidence of multiorgan failure. Plans for CT as well to eval for deeper source of infection. 4. Underlying cirrhosis secondary to hepatitis C, that is complicated by esophageal varices and hepatocellular carcinoma. He has recently received immunotherapy. I did try to reach Dr. Zambrano this morning at the family's request to discuss his case, but unfortunately she is not on-call this weekend. 5. Coagulopathy he has, but elevated INR and low platelets, likely due to his underlying liver disease; however, he is also at risk for developing DIC and worsening coagulopathy due to his underlying sepsis. We will continue to follow closely with you. I have discussed my recommendations with the ICU team. Please do not hesitate to call with any questions. /[id number]/MODL MTDD
[2017-09-22] MEDS ORDERED: ALTEPLASE 2 MG VIAL IVP PRN (10:29)
--- NOTE | 2017-09-22 10:43 | ECHO ---
[email or web address] [address] [address] Main: [phone] Fax: Transthoracic Echocardiogram Name: SAMIR FAN MR#: [id number] Study Date: 09/22/2017 Study Time: 09:42 AM Date of : 1950 Age: 67 year(s) Height: 180.3 cm (71 in.) Weight: 80.29 kg (177 lb.) BSA: 2 m2 Gender: Male Examination: Echo Indication: Cardiogenic shock Image Quality: Technically Difficult Contrast: Requested by: Reyna Telles BP: 121 mmHg/61 mmHg Heart Rate: 95 bpm Rhythm: Normal sinus rhythm Indication: Cardiogenic shock Procedure Staff Cork Grinder: Sejal Zavala [facility] Reading Physician: Batsheva Nuno Requesting Provider: Conclusions: Normal size left ventricle. Mild concentric LV hypertrophy. Normal global systolic LV function. EF is 68 %. No regional wall motion abnormality. Mildly dilated right ventricle. Normal RV function. Mild mitral valve regurgitation is present. Mild tricuspid regurgitation is present. Right ventricular systolic pressure measures 35mmHg. No pericardial effusion. There is a pleural effusion present. No prior echocardiogram Measurements: Chambers Valvular Assessment AV/MV Valvular Assessment TV/PV Normal Normal Normal Name Value Range Name Value Range Name Value Range Ao Dolores (MM): 3.7 cm (2.2 cm-3.7 AV Vmax: 1.36 m/s (1 m/s-1.7 TR Vmax: 2.76 mm/s ( - ) cm) m/s) TR PGmax: 30 mmHg ( - ) IVSd (2D): 1.0 cm (0.6 cm-1.1 AV maxP mmHg ( - ) syst. PAP: 35 mmHg ( - ) cm) LVOT Vmax: 0.89 m/s (0.7 m/s-1.1 PV Vmax: 0.91 m/s (0.6 m/s-0.9 LVDd (2D): 3.6 cm (4.2 cm-5.9 m/s) m/s) cm) MV E Vmax: 0.99 m/s ( - ) PV PGmax: 3 mmHg ( - ) LVDs (2D): 2.3 cm (2.1 cm-4 MV A Vmax: 0.63 m/s ( - ) cm) MV E/A: 1.57 ( - ) LVPWd (2D): 1.1 cm (0.6 cm-1 cm) LVEF (MOD4): 68 % (>=55 %) Patient: SAMIR FAN Study Date: 09/22/2017 Page 1 of 2 09:42 AM RVDd(2D): 3.4 cm (1.9 cm-3.8 cmmm) Continued Measurements: Chambers Valvular Assessment AV/MV Valvular Assessment TV/PV Name Value Name Value Name Value LADs Lon.5 cm MV DecTime: 201 m/s CVP (est.): 5 mmHg LA Area: 20.6 cm2 MV E' Septal: 0.08 m/s TAPSE: 1.8 cm MV E/E' Septal: 12.40 MV E/E' Lateral: 7.40 Additional Vessels Name Value Ao Ascendin.4 cm Findings: Left Ventricle: Normal size left ventricle. Mild concentric LV hypertrophy. Normal global systolic LV function. EF is 68 %. No regional wall motion abnormality. Right Ventricle: Mildly dilated right ventricle. Normal RV function. Left Atrium: The left atrium is normal in size. Right Atrium: The right atrium is normal in size. Mitral Valve: The mitral valve is normal in appearance and function. There is mild thickening of the mitral valve leaflets. Mild mitral annular calcification. Mild mitral valve regurgitation is present. No mitral stenosis is present. Aortic Valve: The aortic valve is tri-leaflet and functions normally. Aortic sclerosis is present. There is no aortic valve regurgitation. No aortic valve stenosis is present. Tricuspid Valve: The tricuspid valve is normal in appearance and function. Mild tricuspid regurgitation is present. Right ventricular systolic pressure measures 35mmHg. Pulmonic Valve: The pulmonic valve is normal in appearance and function. There is no pulmonic regurgitation seen. Aorta: The aorta is normal. Normal size aortic root measuring 3.7 cm. Normal size ascending aorta measuring 3.4 cm. IVC: The IVC is normal sized. Pericardium: No pericardial effusion. There is a pleural effusion present. (No Signature Object) Patient: SAMIR FAN Study Date: 09/22/2017 Page 2 of 2 09:42 AM [id number]
[2017-09-22] MEDS: RIFAXIMIN 550 MG TAB PO SCH ×2 (11:39→21:41)
--- NOTE | 2017-09-22 12:13 | HOSPPROG ---
Hospitalist Progress Note Assessment/Plan: # septic shock - d/t enterobacter bacteremia - currently on levophed and vasopressin - will place PICC # enterobacter cloacae bacteremia - concern for biliary source; has a history of stents; chect CT abd/pelvis - will consult GI for opinion regarding ERCP - tap ascites for ?SBP; needs FFP prior to tap # liver failure d/t HCV - marked elevation in LFTs - c/b coagulopathy, thrombocytopenia - discussed with Dr Isabel at # [facility] - currently on immunotherapy # lactic acidosis - d/t sepsis and liver failure # renal failure - d/t sepsis vs HRS - renal involved - will place HD catheter and consider CRRT Subjective: still very somnolent; discussed with patients family Objective: Vital Signs Temp Pulse Resp BP Pulse Ox 37.5 C 93 19 110/62 94 09/22/17 11:00 09/22/17 11:00 09/22/17 11:00 09/22/17 11:00 09/22/17 11:00 Microbiology 09/21/17 19:30 Blood Panel (PCR) - Final Blood Enterobacter Cloacae Complex Laboratory Results 09/22/17 04:00 09/22/17 10:12 09/21/17 09/22/17 09/23/17 05:59 05:59 05:59 Intake Total 9399 120 Output Total 625 350 Balance 8774 -230 PT 36.1 SEC (12.0-15.0) H 09/22/17 04:00 INR 3.66 (0.83-1.16) H 09/22/17 04:00 55 mins floor cc time - Physical Exam Respiratory: respiratory distress (mod) Gastrointestinal: other (soft, distended with ascites) ICD10 Worksheet Patient Problems: Problems Problem Status Onset Pneumonia Acute Severe sepsis Acute
[2017-09-22] MEDS ORDERED: ALBUMIN 25% 100 ML IV ONE (12:18)
[2017-09-22] MEDS ORDERED: LIDOCAINE 1% 300 MG/30 ML SDV ONE ×2 (13:20→15:42)
--- NOTE | 2017-09-22 14:55 | GCON ---
[f rep st] CONSULTATION CRITICAL CARE CONSULTATION DATE OF CONSULTATION: 09/22/2017 HISTORY OF PRESENT ILLNESS: The patient is a 67-year-old male with a history of known liver cancer, hepatitis C, and cirrhosis, who previously was on a transplant list, but was taken off once it was fo und that his hepatocellular carcinoma had spread. In any case, he has had a history of recurrent asc ites, requiring paracentesis every 3-4 weeks, but in the last couple of weeks has required increasing frequency of this issue. He is normally followed at the [facility] and is now up to weekly paracentesis. He had one done about 4 days ago, and he was relatively stable, though his d iuretics had been held prior to that. He developed increasing shortness of breath and dyspnea on exe rtion about 2 days prior to admission, and had worsening ascites, and when he showed up in the emerge ncy room had a blood pressure 90/50, but this quickly dropped, and requiring Levophed and vasopressin . His white count was actually 6000 at the time of presentation, but jumped to 33,000 even after the institution of antibiotics. He was transferred to the intensive care unit and started on sepsis pro tocol, and received about 8 L of fluid in total during the first 24 hours of his care here, and his p ressure requirements were quite high, and his blood cultures were positive for Enterobacter and gram- negative rods in 4/4 bottles. REVIEW OF SYSTEMS: Otherwise negative, as discussed with his and children. The patient himself was actually somewhat awake, and said that his belly was bothering him, he knew where he was, and wa s requesting a paracentesis, though he was moderately somnolent throughout our exam. PAST MEDICAL HISTORY: 1. Hepatitis C. 2. Cirrhosis. 3. Hepatocellular carcinoma. 4. Chronic thrombocytopenia. 5. Esophageal varices. 6. Coagulopathy as a result. 7. Portal hypertension. 8. Hepatic encephalopathy in the past. 9. Anemia of chronic disease. 10. Hypothyroidism. 11. Gastroesophageal reflux disease. PAST SURGICAL HISTORY: Cholecystectomy, appendectomy, esophageal banding, and ERCPs, with multiple s tents in the past. SOCIAL HISTORY: He is a nonsmoker. No alcohol or IV drug use. FAMILY HISTORY: Noncontributory. CURRENT MEDICATIONS: Invanz, Dilaudid, norepinephrine, Zofran, rifaximin, bicarb drip, and vasopress in. PHYSICAL EXAMINATION: VITAL SIGNS: His T-max is only 37.5, with a T-low of 36 4. His blood pressur e is 114/76, with a heart rate of 96, respirations 21, oxygen saturation 94% on 2.5 L. He was on hig h-dose pressors at this time. GENERAL: As I said, he was moderately somnolent, but he did arouse to voice and followed commands and answer questions appropriately. He was in no apparent respiratory d istress and was not using accessory muscles for breathing. HEENT: Pupils are equally round and reac tive to light. Nonicteric. Noninjected. His mucous membranes were dry, without erythema or exudate . NECK: Supple, without adenopathy or jugular vein distention. Breath sounds were diminished bilat erally, but did not have wheezes, rubs or rales. HEART: Had a regular rate and rhythm. I could not detect a murmur, but it was a suboptimal exam. ABDOMEN: Protuberant and tympanic, and mildly tender, with hypoactive bowel sounds. He was lying in bed. There was some at his hip, but not much on the periphery. NEUROLOGICAL: Notable f or somnolence, but cranial nerves were intact. SKIN: Warm and dry, and jaundiced. OBJECTIVE DATA: Includes white count was 6 yesterday at 17:15, and 33 today, hematocrit of 35, plate lets of 57. INR on admission was 2.65, up to 3.66 now. Venous blood gas showed a pH of 721. Sodium currently 131, potassium 5.1, chloride 102, bicarb 11, anion gap of 18, BUN 57, creatinine of 2.4. Venous lactate was 11.1 when he arrived, it is now 6.9. His glucose was 50 on arrival, is up to 102 now with D5. His total bilirubin on arrival was 37.6, now 33.3, nearly all of this is conjugated. T he AST started at 280, it is now 1251, the ALT is now 308, alkaline phosphatase of 261. Serum albumi n 2.3. Procalcitonin of 33. Urinalysis shows some blood and bilirubin, but leuk esterase is negativ e, as is nitrites and white cells. Blood cultures as described above. Chest x-ray shows some vascular congestion, but no overt pneumoni a or heart failure. He initially had a large stomach bubble that was decompressed with an NG tube. ASSESSMENT AND PLAN: 1. Septic shock due to gram-negative bacteremia and Enterobacter. The source here could easily be b iliary tract or possibly spontaneous bacterial peritonitis given his most recent cap. Lungs do not s eem to be a likely source and there is no obvious skin source for this. He is currently on Invanz, a nd an Infectious Disease consult is pending at this time to clarify those, since 3rd generation cepha losporins are usually best for the peritoneal space. A CT scan has also been ordered so we can norma r evaluate his current state of his cancer. 2. Acute kidney injury. This is abnormal for him. He has been started on a bicarb drip, which is p robably contributing to his lung congestion, and plans have been moving forward to proceed with a CRR T, since his urine output is still low. It is possible that he was developing hepatorenal syndrome b efore his hypotensive insult, though that would be difficult to sort out. If he makes a lot of urine and his electrolytes normalized. It is possible we could overt this problem, but we are all concern ed that this is going to get worse before it gets better. 3. Transaminitis. These seem to be getting worse again, probably related to underlying disease, as well as septic shock. There is no obvious bleeding, though the CAT scan will be certainly useful for evaluation of this. He has had known advancing disease in his liver. This could certainly explain part of that and probably elevates his lactate at the same time. 4. Hyponatremia, which is not severe at this time, and again is probably related to his underlying l iver disease. A total of about 65 minutes of critical care time was required in the evaluation and assessment of th is patient, who is very complex, with multiorgan failure. /[id number]/MODL
--- NOTE | 2017-09-22 15:01 | ASMTCMCOM ---
CM Note CM Note Notes: 67 year old male admitted for SOB, Abd distension, Obs Biliary system, Septic shock. He has a hx of Hep C, Esophageal varices, GERD. May not need dialysis. Lives with his , Marge. CM to follow. Date Signed: 09/22/2017 03:00 PM Electronically Signed By:Deysi Greene LCSW
[2017-09-22] MEDS ORDERED: NALOXONE HCL 0.4 MG/ML INJ ONE (15:37)
[2017-09-22] MEDS ORDERED: MIDAZOLAM 2 MG/2 ML VIAL ONE (15:37)
[2017-09-22] MEDS ORDERED: fentaNYL 100 MCG/2 ML INJ ONE (15:37)
[2017-09-22] MEDS ORDERED: FLUMAZENIL 0.5 MG/5 ML MDV IVP ONE (15:37)
[2017-09-22] MEDS ORDERED: IOPAMIDOL (ISOVUE-300) 100 ML BTL ONE (15:42)
[2017-09-22] MEDS ORDERED: HEPARIN 50,000 UNIT/10 ML VIAL ONE (15:42)
[2017-09-22 16:06] LABS: INR 2.56 (0.83-1.16); PROTIME(PATIENT) 27.5 SEC (12.0-15.0)
[2017-09-22] MEDS ORDERED: VANCOMYCIN HCL/NORMAL SALINE 250 ML IV ONE (17:00)
--- NOTE | 2017-09-22 17:22 | PDPROPOC ---
Sedation Plan of Care Sedation Plan of Care: mental status noted, patient educated of risks, benefits , alternatives, patient can tolerate sedation ASA Classification: ASA 4 Planned drugs: fentanyl, midazolam Mallampati Score: Class 1 Mallampati Reference Image: Patient passed 3-3-2 rule?: Yes
[2017-09-22] MEDS ORDERED: ALBUMIN 25% 100 ML SOLN IV ONE (17:59)
[2017-09-22] MEDS ORDERED: MIDAZOLAM 2 MG/2 ML VIAL IVP PRN (18:47)
[2017-09-22] MEDS ORDERED: MEPERIDINE 25 MG/ML SYR IVP PRN (18:47)
[2017-09-22] MEDS ORDERED: fentaNYL 100 MCG/2 ML INJ IVP PRN (18:47)
[2017-09-22] MEDS ORDERED: FLUMAZENIL 0.5 MG/5 ML MDV IVP PRN (18:47)
[2017-09-22] MEDS ORDERED: NALOXONE HCL 0.4 MG/ML INJ IVP PRN (18:47)
[2017-09-22] MEDS ORDERED: NS 1,000 ML IV SCH (19:00)
--- NOTE | 2017-09-22 19:51 | GCON ---
[f rep st] CONSULTATION GASTROENTEROLOGY INPATIENT CONSULTATION DATE OF CONSULTATION: 09/22/2017 REFERRING PHYSICIAN: Juanpablo Cabezas MD I was kindly requested to see this patient by Dr. Juanpablo Cabezas in consultation for a chief complaint of jaundice. He is a 67-year-old white male who was admitted to the hospital after presenting to the emergency department, complaining of worsening jaundice and generalized weakness, to the point that he found it hard to walk. He has known cirrhosis due to hepatitis C, with sequelae of coagulopathy, past varices, ascites, hepatic encephalopathy, etc. He now has a hepatoma, and is being treated with immunotherapy at the [facility], as well as receiving his liver care there. He has had refractory ascites, requiring large volume paracenteses initially every month, and now lately weekly at the [facility]. His last was 4 days ago. Upon admission, he became hypotensive, septic, and was admitted to the ICU. Blood cultures revealed Gram-negative bacteremia, showing Enterobacter. His white count has gone from 6000 to 33,000. His total bilirubin is 33.3. CT scan of the abdomen and pelvis without contrast shows increasing size of his dominant liver cancer, in the right lobe, anterior segment, near the dome. There are smaller hepatomas as well. There is increased dilation of his biliary system in the right lobe. A biliary stent is seen, but appears to be draining the left intrahepatic system, and not draining the above dilated system. Gas bubbles can be seen in the right intrahepatic ducts. There is new portal vein thrombosis. PAST MEDICAL HISTORY: 1. As above. 2. Appendectomy. 3. Cholecystectomy. 4. Past hepatic encephalopathy. 5. Thyroid disorder. 6. Reflux. 7. Otherwise, noncontributory. INPATIENT MEDICATIONS: Include 2 pressors, Invanz, Xifaxan 550 mg twice daily. ALLERGIES: No known drug allergies. SOCIAL HISTORY: He is . He is a limited resuscitation. FAMILY HISTORY: Negative for similar jaundice. REVIEW OF SYSTEMS: Positive pertinent review of systems as per my HPI. Otherwise, complete review of systems is negative to make a total of 10 systems. PHYSICAL EXAMINATION: CONSTITUTIONAL: Physical exam reveals an ill-appearing gentleman. Hypotensive, on pressors. SKIN: Jaundiced, warm. EYES: Pupils equal, round, reactive to light and accommodation. Sclerae icteric. EARS, NOSE , MOUTH AND THROAT: Dry mucous membranes, no masses seen. CARDIOVASCULAR: Normal S2, normal PMI. RESPIRATORY: Lungs clear to auscultation and percussion anteriorly. GASTROINTESTINAL: Ascites, minimal tenderness. NEUROLOGIC: Grossly nonfocal, cranial nerves grossly intact. PSYCHIATRIC: Appears alert and oriented x3. MUSCULOSKELETAL: Generalized weakness, but moves all extremities. Normal station. LABORATORIES: Include the above. Sodium 133. BUN 59, with a creatinine of 2.4. Prothrombin time 27.5 with an INR of 2.56. Paracentesis with 510 white blood cells, no differential count. Albumin less than 1. Ultrasound was not able to appreciate his bile ducts. CT scan as above. Moderate ascites was also seen. Ileus pattern seen. CBC with hematocrit of 35.2%. Platelet count 57,000. Urinalysis: 10 to 15 white blood cells per high-power field only. The rest of his liver function tests show an AST of 1251, ALT 308. Alkaline phosphatase 261. Normal lipase. ASSESSMENT: 1. Sepsis, with bacteremia. Almost certainly due to blockage of his right intrahepatic biliary system from worsening hepatocellular carcinoma, with secondary cholangitis. This area is not being drained by his stent. 2. Sepsis, with hypotension, requiring 2 pressors. 3. Hepatocellular carcinoma, worsening, despite immunotherapy, with increasing size, new portal vein thrombosis, etc. 4. Ascites. With his white blood cells only being 510, doubt spontaneous bacterial peritonitis. However, we will get a differential count. 5. History of hepatic encephalopathy. Presently, doing well. 6. Elevated creatinine. Worrisome, in the setting of his sepsis, multiorgan failure, etc. Renal has been consulted. PLAN: 1. I agree with emergent interventional radiology percutaneous drainage of his right intrahepatic biliary system. They will do a complete paracentesis prior. This is the safer course, as presently he is hypotensive, on 2 pressors, septic, and general anesthesia for ERCP would be high risk. 2. Once he hopefully becomes more stable after the above, we could then proceed with an ERCP, using a wire via his percutaneous drain for a "rendezvous " procedure, with placement of a stent in his right biliary system. 3. We will add an IV proton pump inhibitor daily. 4. Vitamin K x3 days. 5. With the degree of his sepsis, question whether he would benefit from double Gram-negative coverage. He presently is on just Invanz. As per the hospitalist service, critical care. 6. Would recommend placing him on his home dose of Synthroid. With some signs of ileus, possibly this should be IV. As per the hospitalist and critical care service. 7. Overall, poor prognosis, with multiorgan failure, etc. In addition, his hepatocellular carcinoma seems to be progressing. Thank you for allowing me to help in the management of this patient. Copy requested to: Dr. Ignacia Barrett [facility] Hepatology Department /[id number]/[id number] MTDD
[2017-09-22] MEDS: ERTAPENEM 1 GM VIAL IVP SCH (20:00)
[2017-09-22] MEDS: PHYTONADIONE 2.5 MG/2.5 ML ORAL UDL PO SCH (21:38)
[2017-09-22] MEDS: PANTOPRAZOLE SODIUM 40 MG VIAL IVP SCH (21:41)
--- NOTE | 2017-09-22 23:10 | PDRADPN ---
Radiology Procedure Note Date of Procedure: 09/22/17 Radiologist: Corby Bill Anesthesia: IV Sedation Pre-op Diagnosis: HCC, biliary obstruction, sepsis, ascites Post-op Diagnosis: Same Indication: Biliary obstruction, sepsis, ascites Procedure: 1) Midline placement. 2) Paracentesis. 3) Rt PTC and external drainage. Finding(s): 1) Inability to pass a wire through the Rt subclavian, so a RUE mid line was placed instead of a PICC. 2) Complete thrombosis of the Rt IJ, so a temp HD catheter was not placed (d/w Raulito, he is ok with waiting). 3) RLQ paracentesis. 4) Technically challenging Rt biliary access. Rt perc transhepatic cholangiogram demostrates moderate Rt biliary ductal dilation and ectatic central ducts with filling defects, presumably tumor and/or blood clot. A brief attempt to catheterize the common duct was not successful, so a 10-Fr all purpose drain was placed to act as an external drain. Output was thick, dark red bilous material. *Please see full dictated report to follow for additional details. Inf/Abcess present in the surg proc area at time of surgery?: Yes Depth: Organ Space (Peritoneum, Liver) EBL: Minimal Complications: No immediate Drains: Other (Rt external biliary drain)
[2017-09-23] MEDS: HYDROmorphONE/DILAUDID 1 MG/ML INJ IVP PRN (03:49)
[2017-09-23 06:31] LABS: PLATELET COUNT 28 10^3/uL (150-400)
[2017-09-23 06:36] LABS: INR 3.14 (0.83-1.16); PROTIME(PATIENT) 32.1 SEC (12.0-15.0)
[2017-09-23] MEDS: PHYTONADIONE 2.5 MG/2.5 ML ORAL UDL PO SCH (08:32)
[2017-09-23] MEDS: ERTAPENEM 1 GM VIAL IVP SCH (08:32)
[2017-09-23] MEDS: RIFAXIMIN 550 MG TAB PO SCH ×2 (08:32→19:43)
[2017-09-23] MEDS: PANTOPRAZOLE SODIUM 40 MG VIAL IVP SCH (08:33)
--- NOTE | 2017-09-23 09:15 | SOAPPROG ---
SOAP Progress Note Assessment/Plan: Assessment: 1. Non oliguric SHAILESH in the setting of sepsis and liver failure Excellent UO. Non oliguric. Cr may have plateaued. BP stable on pressors. Suspect not hepatorenal given excellent UO, but this may be having an effect. Bilirubin can also have toxic tubular effects. As of now, there are no indications for dialysis. Acidosis is being treated with bicarbonate drip. Will hold HD, monitor volume status and electrolytes. 2. Hemodynamics Slowly weaning pressors 3. Hepatic CA and failure Complicated situation with infiltrating and obstructing tumor. 4. Plan of care Follow course, relationship counselor family. Plan: 09/23/17 09:07 Subjective: Responds Objective: Vital Signs Temp Pulse Resp BP Pulse Ox 37.3 C 93 20 111/60 96 09/23/17 07:53 09/23/17 09:00 09/23/17 09:00 09/23/17 09:00 09/23/17 09:00 Microbiology 09/21/17 19:30 Blood Panel (PCR) - Final Blood Enterobacter Cloacae Complex 09/22/17 17:54 Gram Stain - Final Peritoneal Fluid - Aspirate Laboratory Results 09/23/17 06:00 09/23/17 06:00 09/22/17 09/23/17 09/24/17 05:59 05:59 05:59 Intake Total 9399 5015 Output Total 993 8130 Balance 8774 -3115 PT 32.1 SEC (12.0-15.0) H 09/23/17 06:00 INR 3.14 (0.83-1.16) H 09/23/17 06:00 Physical Exam - Physical Exam General Appearance: cachetic, other (weak) Respiratory: lungs clear Cardiac/Chest: regular rate, rhythm Abdomen: non-tender, distended Male Genitalia: other (talbot) Skin: jaundice Extremities: other (trace thigh edema) Neuro/Psych: alert ICD10 Worksheet Patient Problems: Problems Problem Status Onset Elevated serum lactate dehydrogenase Acute Hypotension Acute Liver cancer, primary, with metastasis from liver to other site Acute Pneumonia Acute Severe sepsis Acute
[2017-09-23] MEDS ORDERED: CALCIUM GLUCONATE 2 GM in D5W 50 ML IV ONE (09:18)
[2017-09-23] MEDS ORDERED: LIDOCAINE/PRILOCAINE 1 EACH CRTUBE TP PRN (09:33)
--- NOTE | 2017-09-23 09:37 | HOSPPROG ---
Hospitalist Progress Note Assessment/Plan: # septic shock - d/t enterobacter bacteremia - currently on levophed and vasopressin - titrating down # enterobacter cloacae bacteremia - d/t biliary obstruction - now with biliary drain; bilirubin higher today - follow # liver failure d/t HCV - followed at - marked elevation in LFTs - bili higher but AST lower - c/b coagulopathy, thrombocytopenia - discussed with Dr Isabel at # marked thrombocytopenia - d/t portal hypertension and sepsis - hold AC today # HCC - currently on immunotherapy # lactic acidosis - d/t sepsis and liver failure # renal failure - d/t sepsis vs HRS - renal involved - following closely for CRRT - does not need currently Subjective: s/p PICC, paracentesis, biliary drain yesterday Objective: Vital Signs Temp Pulse Resp BP Pulse Ox 37.3 C 93 20 111/60 96 09/23/17 07:53 09/23/17 09:00 09/23/17 09:00 09/23/17 09:00 09/23/17 09:00 Microbiology 09/21/17 19:30 Blood Panel (PCR) - Final Blood Enterobacter Cloacae Complex 09/22/17 17:54 Gram Stain - Final Peritoneal Fluid - Aspirate Laboratory Results 09/23/17 06:00 09/23/17 06:00 09/22/17 09/23/17 09/24/17 05:59 05:59 05:59 Intake Total 9399 5015 Output Total 625 8130 Balance 8774 -3115 PT 32.1 SEC (12.0-15.0) H 09/23/17 06:00 INR 3.14 (0.83-1.16) H 09/23/17 06:00 35 mins floor CC time critically ill d/t liver failure, renal failure and septic shock - Physical Exam Constitutional: chronically ill appearing, other (jaundiced) Cardiovascular: regular rate and rhythym, no murmur, rub, or gallop Respiratory: no respiratory distress, no rales or rhonchi Gastrointestinal: tenderness (mild, diffuse), distension (but better) ICD10 Worksheet Patient Problems: Problems Problem Status Onset Pneumonia Acute Severe sepsis Acute Hypotension Acute Elevated serum lactate dehydrogenase Acute Liver cancer, primary, with metastasis from liver to other site Acute
--- NOTE | 2017-09-23 09:59 | SOAPPROG ---
SOAP Progress Note Assessment/Plan: Assessment/Plan: 1. Sepsis with bacteremia; suspect from blockage of his right IH biliary system, from progressing hepatocellular cancer. External drain now in place ( I.R.'s help appreciated), with 90 ml output. Clinically, slightly better today. 2. TB much higher. ? if external drain working properly, vs. too soon yet to see the beginning of a decline. 3. Ascites. PMNs on tap 270. However, doubt significant SBP. Regardless, on 'biots. - recheck TB tomorrow; if even higher, might need limited cholangiogram via external biliary drain, to insure proper placement, etc. - send bile for gram stain, cx - at some point, if he improves, off pressors, etc., he can get a right-sided biliary stent placed via ERCP (the external biliary drain can be potentially used for a "rendezvous"). Whether this is done here, or with Dr. Gerardo Hoang ( his advanced endoscopist) at the [facility], will depend on clinical situation. - else, as per critical care, renal, etc. 09/23/17 09:50 Subjective: cc: sepsis Responsive, but lethargic. Denies abdominal pain, rigors, chills, sweats. Objective: Vital Signs Temp Pulse Resp BP Pulse Ox 37.3 C 93 20 111/60 96 09/23/17 07:53 09/23/17 09:00 09/23/17 09:00 09/23/17 09:00 09/23/17 09:00 Microbiology 09/21/17 19:30 Blood Panel (PCR) - Final Blood Enterobacter Cloacae Complex 09/22/17 17:54 Gram Stain - Final Peritoneal Fluid - Aspirate Laboratory Results 09/23/17 06:00 09/23/17 06:00 09/22/17 09/23/17 09/24/17 05:59 05:59 05:59 Intake Total 9314 5015 Output Total 871 8195 Balance 8774 -3110 PT 32.1 SEC (12.0-15.0) H 09/23/17 06:00 INR 3.14 (0.83-1.16) H 09/23/17 06:00 tap with 53% PMNs TB 46.5 Physical Exam - Physical Exam General Appearance: mild distress, cachetic EENT: normal ENT inspection, pharynx normal, TMs normal, scleral icterus (R), scleral icterus (L) Neck: non-tender, full range of motion, supple, normal inspection Respiratory: chest non-tender, lungs clear, normal breath sounds Cardiac/Chest: normal peripheral pulses, regular rate, rhythm Peripheral Pulses: 2+: carotid (R), carotid (L), femoral (R), femoral (L), dorsalis-pedis (R), dorsalis-pedis (L) Abdomen: distended, splenomegaly Male Genitalia: deferred Rectal: deferred Back: Normal inspection Skin: warm/dry, jaundice Lymphatic: no adenopathy Extremities: normal range of motion, non-tender, normal inspection, normal capillary refill Neuro/Psych: no motor/sensory deficits, alert ICD10 Worksheet Patient Problems: Problems Problem Status Onset Elevated serum lactate dehydrogenase Acute Hypotension Acute Liver cancer, primary, with metastasis from liver to other site Acute Pneumonia Acute Severe sepsis Acute
[2017-09-23] MEDS: TAMSULOSIN HCL 0.4 MG CAP PO SCH (10:12)
--- NOTE | 2017-09-23 11:07 | SOAPPROG ---
SOAP Progress Note Assessment/Plan: Assessment: 67 yo M w h/o HCV cirrhosis, HCC s/p TACE, and biliary obstruction s/p CBD stent who presented with SHAILESH, sepsis and right-sided biliary obstruction and is now s/p right-sided external biliary drainage POD#1. 1. Sepsis- Likely 2/2 right-sided biliary obstruction. Pressor requirement decreased. WBC trending down. 2. Biliary obstruction- Should be adequately drained now. Continue drain care. Depending on goals of care, consider eventual ERCP to exchange indwelling CBD stent to place and internal right-sided stent. 3. HCC- Per Dr. Landers, unlikely to be candidate for further immunotherapy unless his condition significantly improves. 4. Cirrhosis- TB and LFTs up. 5. SHAILESH- Cr stable. At the request of the family, discussed pt's condition with pt's oncologist Preston Landers and Ammonia Still Operator Ignacia Barrett. 09/25/17 00:17 09/25/17 00:28 09/25/17 00:31 09/25/17 00:37 Objective: Pt somnolent but rousable. Denies pain. Drinking occasional sips of water. Afebrile. Vital Signs Temp Pulse Resp BP Pulse Ox 37.3 C 91 20 111/60 91 L 09/23/17 07:53 09/23/17 10:00 09/23/17 10:00 09/23/17 09:00 09/23/17 10:00 Microbiology 09/21/17 19:30 Blood Panel (PCR) - Final Blood Enterobacter Cloacae Complex 09/22/17 17:54 Gram Stain - Final Peritoneal Fluid - Aspirate Laboratory Results 09/23/17 06:00 09/23/17 06:00 09/22/17 09/23/17 09/24/17 05:59 05:59 05:59 Intake Total 9302 9286 Output Total 331 0672 Balance 8774 -311 PT 32.1 SEC (12.0-15.0) H 09/23/17 06:00 INR 3.14 (0.83-1.16) H 09/23/17 06:00 Gen: Somnolent, critically ill HEENT: Icteric, OP clear Heart: RRR Resp: Normal effort Abd: Distended, mildly TTP over RUQ Skin: Marked jaundice ICD10 Worksheet Patient Problems: Problems Problem Status Onset Elevated serum lactate dehydrogenase Acute Hypotension Acute Liver cancer, primary, with metastasis from liver to other site Acute Pneumonia Acute Severe sepsis Acute
--- NOTE | 2017-09-23 14:18 | PDINTPN ---
Customer Service Leader Progress Note Assessment/Plan: Assessment: Enterobacter Sepsis: Likely Biliary source, now s/p drain. On Invanz, with falling WBC and decreased pressor needs. Hepatocellular Carcinoma Biliary Obstruction: Due to malignancy. S/P stent. SHAILESH: Non-oliguric. Cr stable, anion gap closed. No indication for acute dialysis at this point. Hypotension: Due to sepsis. On NE at 8 to maintain BP at goal. Hiccups: He's had these in the past, responded to Thorazine. Plan: Weaning NE today as tolerated. Consider Thorazine if hiccups persist. Continue Invanz, follow cultures. Slowly advance diet as tolerated. 40 min CC time, managing sepsis/hypotension/pressors. 09/23/17 14:21 Subjective: Still quite weak. Poor appetite, but taking PO fluids. C/O hiccups. Objective: Vital Signs Temp Pulse Resp BP Pulse Ox 37.3 C 83 20 89/59 L 94 09/23/17 12:00 09/23/17 13:00 09/23/17 13:00 09/23/17 12:00 09/23/17 13:00 Microbiology 09/23/17 10:00 Gram Stain - Final Bile - Other 09/21/17 19:30 Blood Panel (PCR) - Final Blood Enterobacter Cloacae Complex 09/22/17 17:54 Gram Stain - Final Peritoneal Fluid - Aspirate Laboratory Results 09/23/17 06:00 09/23/17 12:45 09/22/17 09/23/17 09/24/17 05:59 05:59 05:59 Intake Total 9399 5015 Output Total 625 8130 25 Balance 8774 -3115 -25 PT 32.1 SEC (12.0-15.0) H 09/23/17 06:00 INR 3.14 (0.83-1.16) H 09/23/17 06:00 Physical Exam - Physical Exam General Appearance: alert, no apparent distress EENT: normal ENT inspection Neck: normal inspection Respiratory: lungs clear, normal breath sounds Cardiac/Chest: normal peripheral pulses, regular rate, rhythm, No edema Abdomen: non-tender, No normal bowel sounds (tympanitic) Skin: warm/dry, jaundice Extremities: normal inspection Neuro/Psych: no motor/sensory deficits, alert, normal mood/affect, oriented x 3 ICD10 Worksheet Patient Problems: Problems Problem Status Onset Elevated serum lactate dehydrogenase Acute Hypotension Acute Liver cancer, primary, with metastasis from liver to other site Acute Pneumonia Acute Severe sepsis Acute
[2017-09-23] MEDS ORDERED: CALCIUM GLUCONATE 50 ML IV ONE ×2 (14:30→19:30)
--- NOTE | 2017-09-23 16:00 | ASMTCMCOM ---
CM Note CM Note Notes: Patient doing better today/MD's in ICU Rounds. Spoke with patient's and daughter. Talked about Therapy evaluating for discharge needs. They may recommend SNF or HC? Gave them resources-[employer]. Briefly talked about Palliative Care/Hospice. She is interested in finding a private duty agency to be with patient at home. Date Signed: 09/23/2017 03:59 PM Electronically Signed By:Deysi Greene LCSW
[2017-09-23] MEDS: chlorproMAZINE HCL 25 MG TAB PO ONE ×2 (19:45→21:20)
--- NOTE | 2017-09-23 20:30 | GCON ---
[f rep st] CONSULTATION INPATIENT INFECTIOUS DISEASE CONSULTATION REFERRING PHYSICIAN: Juanpablo Cabezas MD REASON FOR REFERRAL: Sepsis and gram-negative bacteremia. HISTORY OF PRESENT ILLNESS: Patient is a 67-year-old male with known late stage hepatocellular carci noma who was reasonably stable 2 weeks ago but presented to [facility] through the [facility] room on 09/21/17, complaining of dyspnea and abdominal distention. Patient has a history of he patitis C virus with cirrhosis and sequelae of hepatocellular carcinoma. He is being managed with im munotherapy and followed by the [facility]'s cancer specialists. Patient had undergone p aracentesis at the [facility] 4 days prior to presentation. At that point it was a thera peutic tap and he had 3.5 L of peritoneal fluid removed. Patient had reported increased abdominal di stention and discomfort since that time. Patient was also noted to be jaundiced. Patient was admitt ed and begun on albumin and Lasix and placed on pressors. Patient was presenting with waxing and wan ing levels of consciousness. Renal consulted in [facility] on 09/22/17. Patient was noted to hav e a creatinine of 2.4 on admission. He was also noted to have a significant metabolic acidosis with a bicarbonate of 10. Patient was placed on a bicarbonate drip. Abdomen and pelvic CT without contra st done near noon on 09/14/17, showed interval increase in the size of a dominant mass in the right l obe of his liver as well as increase in size of smaller hepatic masses. It also showed interval deve lopment of moderate dilatation of the biliary system in the right lobe of the liver that is not drain ed by previously placed stents. Gas bubbles were also noted in the dilated right intrahepatic bile d ucts. Ileus and ascites were also noted. Patient underwent a paracentesis by Interventional Radiolo gy. A percutaneous transhepatic biliary drain was placed as well to drain the right side. This was successful. Nearly 9 L of peritoneal fluid were drained. Since that procedure, the patient has yovani ined markedly stable. Blood cultures did grow Enterobacter species. The patient was able to titrate down on the required Levophed and vasopressin. Patient's mental status improved as well. Currently , he is intermittently speaking with family members. His urine output is adequate. We are consulted to help treat and manage the Enterobacter bacteremia. Patient received a dose of ertapenem early th is morning and a dose of vancomycin yesterday prior to the procedure. PAST MEDICAL HISTORY: 1. Hepatocellular carcinoma secondary to hepatitis C infection. 2. Cirrhosis. 3. Hepatic encephalopathy. 4. Portal hypertension. 5. Esophageal varices. 6. Thrombocytopenia. 7. Coagulopathy. 8. Hypothyroidism. 9. Gastroesophageal reflux disease. PAST SURGICAL HISTORY: 1. Status post cholecystectomy. 2. Status post appendectomy. 3. Status post multiple paracenteses. 4. Status post banding of esophageal varices. 5. Status post ERCP. MEDICATIONS: Antibiotics: 1. Ertapenem. 2. Vancomycin. ALLERGIES: Patient has no known drug allergies. SOCIAL HISTORY: Patient is . He lives with his . No tobacco or alcohol use. FAMILY HISTORY: Reviewed, noncontributory. REVIEW OF SYSTEMS: Other than that detailed above in History of Present Illness, comprehensive 10-sy stem review is negative. PHYSICAL EXAMINATION: VITAL SIGNS: Temperature maximum 37.6, temperature current 37.6, heart rate 9 5, respiratory rate 20, blood pressure 91/57. GENERAL: Patient is a chronically ill-appearing, well -formed well-nourished older male, no acute distress. He is not toxic in appearance. He is alert wi th questionable orientation at all times. HEENT: Normocephalic, atraumatic. Patient does have scle ral icterus. No oral lesion. No drainage from the nares. Eyes: Lids and conjunctivae are within n ormal limits. Pupils are equal and round bilaterally. HEART: Regular rate and rhythm. No signific ant peripheral edema. LUNGS: Clear to auscultation bilaterally with good effort. SKIN: Warm and d ry to the touch. Positive jaundice. No other rash or lesion noted. ABDOMEN: Soft, distended. Min imally tender. No masses. MUSCULOSKELETAL: No muscle belly tenderness is noted. No joint line eff usion or arthritis are seen. NEURO: Cranial nerves 2-12 seem to be intact. Peripheral sensation in tact in extremities. LABORATORY DATA: Patient has a CBC dated 09/23/17, shows a white blood cell count 17.5, hemoglobin 1 1.2, hematocrit of 31.6, and a platelet count of 28. Serum chemistries on 09/23/17, show sodium of 1 28, potassium of 3.7, chloride of 93, bicarbonate of 19, BUN of 73, creatinine of 2.6. Total bilirub in is 36.3, AST is 688, ALT is 271, albumin is 2.4, total protein is 5.7. Urinalysis on 09/22/17, sh ows 10-15 white blood cells per high-power field. Peritoneal fluid from 09/22/17, shows 510 white ce lls and 657 red cells, 53% of white cells are neutrophils. Peritoneal albumin is less than 1. Perit roy total protein is less than 2.0. MICROBIOLOGIC DATA: Patient has blood cultures dated 09/21/17, show growth in 2 sets of Enterobacter cloacae. Sensitivity panels are pending. Peritoneal fluid aspirates are no growth to date. Bile d rain is also no growth to date. ASSESSMENT: Enterobacter bacteremia secondary to ascending cholangitis. Patient has significant asc ites but there is no objective evidence that he has bacterial peritonitis. Nevertheless, I will cont inue coverage with ertapenem. Will forego more vancomycin considering the likelihood of gram-positiv e participation in this is low and vancomycin certainly has the possibility of putting pressure on ki dney function. So far at this point, the patient's kidney function and urine output are holding up w ell. PLAN: 1. Continue ertapenem at reduced dose secondary to kidney and liver disease. 2. Follow up blood cultures in 1-2 days. 3. Follow clinical course. /[id number]/MODL
[2017-09-23] MEDS ORDERED: RIFAXIMIN 200 MG TAB PO SCH (21:00)
[2017-09-24] MEDS: VASOPRESSIN/DEXTROSE 250 ML IV SCH (04:09)
[2017-09-24] MEDS: NOREPINEPHRINE BITARTRATE 16 MG in D5W 250 ML IV SCH (04:09)
[2017-09-24 04:48] LABS: PLATELET COUNT 23 10^3/uL (150-400)
[2017-09-24 04:49] LABS: INR 2.24 (0.83-1.16); PROTIME(PATIENT) 24.8 SEC (12.0-15.0)
[2017-09-24] MEDS: SODIUM BICARBONATE 150 MEQ in D5W 1,000 ML IV SCH (05:34)
[2017-09-24] MEDS ORDERED: ORAL BALANCE GEL TUBE PO PRN (07:34)
[2017-09-24] MEDS: ERTAPENEM 1 GM VIAL IVP SCH (08:14)
[2017-09-24] MEDS: PANTOPRAZOLE SODIUM 40 MG VIAL IVP SCH (08:14)
[2017-09-24] MEDS: RIFAXIMIN 550 MG TAB PO SCH ×2 (08:14→19:47)
[2017-09-24] MEDS ORDERED: NON-FORMULARY NEW DRUG (Omeprazole [Omeprazole] 20 MG) PO SCH (09:00)
[2017-09-24] MEDS ORDERED: PANTOPRAZOLE SODIUM 40 MG TAB PO SCH (09:00)
--- NOTE | 2017-09-24 09:23 | SOAPPROG ---
SOAP Progress Note Assessment/Plan: Assessment: 1. Non oliguric SHAILESH in the setting of sepsis and liver failure No indications for dialysis. Good UO, but clearances poor. 2. Hemodynamics Pressors back up today. Will try adding albumin and following. 3. Hepatic CA and failure Complicated situation with infiltrating and obstructing tumor. Bili has improved with drain 4. Plan of care Long discussion with family today. 5. MS He is less oriented, and quite weak. Lactulose? 6. Acidosis Decrease bicarb drip 7. Supplement calcium Subjective: Weak Objective: Vital Signs Temp Pulse Resp BP Pulse Ox 37.2 C 94 20 98/54 L 93 09/24/17 06:00 09/24/17 07:00 09/24/17 07:00 09/24/17 07:00 09/24/17 07:00 Microbiology 09/21/17 19:30 Blood Culture - Final Blood Enterobacter Cloacae Blood Panel (PCR) - Final Enterobacter Cloacae Complex 09/21/17 19:52 Blood Culture - Final Blood Enterobacter Cloacae 09/22/17 17:54 Gram Stain - Final Peritoneal Fluid - Aspirate 09/23/17 10:00 Gram Stain - Final Bile - Other Laboratory Results 09/24/17 04:30 09/24/17 04:30 09/23/17 09/24/17 09/25/17 05:59 05:59 05:59 Intake Total 5015 3070 Output Total 8130 1455 Balance -3115 1615 PT 24.8 SEC (12.0-15.0) H 09/24/17 04:30 INR 2.24 (0.83-1.16) H 09/24/17 04:30 Physical Exam - Physical Exam General Appearance: mild distress, cachetic Respiratory: decreased breath sounds Cardiac/Chest: regular rate, rhythm Abdomen: distended, ascites Male Genitalia: other (talbot) Skin: jaundice Extremities: pedal edema Neuro/Psych: disoriented to time ICD10 Worksheet Patient Problems: Problems Problem Status Onset Elevated serum lactate dehydrogenase Acute Hypotension Acute Liver cancer, primary, with metastasis from liver to other site Acute Pneumonia Acute Severe sepsis Acute
[2017-09-24] MEDS ORDERED: CALCIUM GLUCONATE 2 GM in D5W 50 ML IV ONE ×2 (09:25→15:07)
[2017-09-24] MEDS ORDERED: ALBUMIN 25% 50 ML IV ONE (09:26)
[2017-09-24] MEDS ORDERED: SODIUM BICARBONATE 75 MEQ in 1/2 NS 1,000 ML IV SCH (09:30)
[2017-09-24] MEDS: PHYTONADIONE 2.5 MG/2.5 ML ORAL UDL PO SCH (09:44)
--- NOTE | 2017-09-24 11:51 | SOAPPROG ---
SOAP Progress Note Assessment/Plan: Assessment/Plan: 1. Sepsis with bacteremia; suspect from blockage of his right IH biliary system, from progressing hepatocellular cancer (especially as his bile from his drain is growing a gram negative annette). External drain in place, with much better output today. 2. Elevated TB. Improved; suspect drain working well. 3. More disoriented. A degree of hepatic encephalopathy possible. - recheck TB tomorrow - lactulose - long discussion with family, regarding level of care. They seem to be leaning towards comfort care, but need more time, need to talk with the pt., etc. - at some point, if he remains full care and improves (off pressors, out of the ICU), etc., he can get a right-sided biliary stent placed via ERCP (the external biliary drain can be potentially used for a "rendezvous"). Whether this is done here, or [place] Gerardo Hoang (his [place]oscop[place] [facility] [place] will depend on clinical situation. - else, as per critical care, renal, etc. 09/24/17 11:46 Subjective: cc: jaundice Decreased orientation. Weak. No rigors, chills, sweats. Objective: Vital Signs Temp Pulse Resp BP Pulse Ox 36.9 C 91 20 101/60 93 09/24/17 08:00 09/24/17 10:00 09/24/17 10:00 09/24/17 10:00 09/24/17 10:00 Microbiology 09/23/17 10:00 Gram Stain - Final Bile - Other 09/21/17 19:30 Blood Culture - Final Blood Enterobacter Cloacae Blood Panel (PCR) - Final Enterobacter Cloacae Complex 09/21/17 19:52 Blood Culture - Final Blood Enterobacter Cloacae 09/22/17 17:54 Gram Stain - Final Peritoneal Fluid - Aspirate Laboratory Results 09/24/17 04:30 09/24/17 04:30 09/23/17 09/24/17 09/25/17 05:59 05:59 05:59 Intake Total 5015 3070 Output Total 8130 1455 200 Balance -3115 1615 -200 PT 24.8 SEC (12.0-15.0) H 09/24/17 04:30 INR 2.24 (0.83-1.16) H 09/24/17 04:30 Bile drain with 255 ml output! One b.m./24 hours Physical Exam - Physical Exam General Appearance: no apparent distress, cachetic EENT: normal ENT inspection, pharynx normal, TMs normal, scleral icterus (R), scleral icterus (L) Neck: non-tender, full range of motion, supple, normal inspection Respiratory: chest non-tender, lungs clear, normal breath sounds Cardiac/Chest: normal peripheral pulses, regular rate, rhythm Peripheral Pulses: 2+: carotid (R), carotid (L), femoral (R), femoral (L), dorsalis-pedis (R), dorsalis-pedis (L) Abdomen: normal bowel sounds, non-tender, soft Male Genitalia: deferred Rectal: deferred Back: Normal inspection Skin: warm/dry, jaundice Lymphatic: no adenopathy Extremities: normal range of motion, non-tender, normal inspection, normal capillary refill Neuro/Psych: no motor/sensory deficits, alert ICD10 Worksheet Patient Problems: Problems Problem Status Onset Elevated serum lactate dehydrogenase Acute Hypotension Acute Liver cancer, primary, with metastasis from liver to other site Acute Pneumonia Acute Severe sepsis Acute
--- NOTE | 2017-09-24 12:07 | PDINTPN ---
Laser Beam Color Scanner Operator Progress Note Assessment/Plan: Assessment: Enterobacter Sepsis: Likely Biliary source, now s/p drain. On Invanz, with falling WBC. Still on NE, CAN STACKER. Hepatocellular Carcinoma Biliary Obstruction: Due to malignancy. S/P stent on left, drain on right. SHAILESH: Non-oliguric. Cr remains elevated, stable, anion gap closed. No indication for acute dialysis at this point. Hypotension: Due to sepsis. On NE at 12, CAN STACKER 0.4 to maintain BP at goal. Hiccups: He's had these in the past, responded to Thorazine. Improved Plan: Weaning NE/CAN STACKER today as tolerated, will set lower BP goal and watch mentation/urine output. Consider Thorazine if hiccups return. Continue Invanz, follow cultures. Slowly advance diet as tolerated. Discussed palliative care/hospice with family and Dr. Hardy, will get palliative/ hospice consult. 35 min CC time, managing hypotension/pressors. 09/23/17 14:21 09/24/17 12:13 Subjective: Quite weak, lethargic. Objective: Vital Signs Temp Pulse Resp BP Pulse Ox 36.9 C 91 20 101/60 93 09/24/17 08:00 09/24/17 10:00 09/24/17 10:00 09/24/17 10:00 09/24/17 10:00 Microbiology 09/23/17 10:00 Gram Stain - Final Bile - Other 09/21/17 19:30 Blood Culture - Final Blood Enterobacter Cloacae Blood Panel (PCR) - Final Enterobacter Cloacae Complex 09/21/17 19:52 Blood Culture - Final Blood Enterobacter Cloacae 09/22/17 17:54 Gram Stain - Final Peritoneal Fluid - Aspirate Laboratory Results 09/24/17 04:30 09/24/17 04:30 09/23/17 09/24/17 09/25/17 05:59 05:59 05:59 Intake Total 5015 3070 Output Total 8130 1455 200 Balance -3115 1615 -200 PT 24.8 SEC (12.0-15.0) H 09/24/17 04:30 INR 2.24 (0.83-1.16) H 09/24/17 04:30 Physical Exam - Physical Exam General Appearance: No alert EENT: scleral icterus (R), scleral icterus (L) Neck: normal inspection Respiratory: chest non-tender, lungs clear Cardiac/Chest: normal peripheral pulses, regular rate, rhythm, edema Abdomen: normal bowel sounds, non-tender Skin: warm/dry, jaundice Extremities: normal inspection Neuro/Psych: No alert (lethargic), No normal mood/affect, No oriented x 3 (not reliably answering questions.) ICD10 Worksheet Patient Problems: Problems Problem Status Onset Elevated serum lactate dehydrogenase Acute Hypotension Acute Liver cancer, primary, with metastasis from liver to other site Acute Pneumonia Acute Severe sepsis Acute
[2017-09-24] MEDS: TAMSULOSIN HCL 0.4 MG CAP PO SCH (12:34)
[2017-09-24] MEDS: LACTULOSE 20 GM/30 ML UDCUP PO SCH ×2 (12:46→19:46)
--- NOTE | 2017-09-24 13:51 | PCMIDPN ---
Assessment/Plan: Assessment/Plan: 1. Enterobacter bacteremia/sepsis secondary to biliary source. -sensitivities reviewed. -Currently on invanz. -bile drain cx with GNR -wbc improved -requiring two pressors at the present time. -labs and cultures reviewed with family at bedside. -care coordinated with RN -family in discussions about alf plan, possible palliative care meds invanz 1g jaideny- Subjective: afebrile. weak. remains in icu. has some pain. mostly oriented. family at bedside. denies sob. Objective: Vital Signs Temp Pulse Resp BP Pulse Ox 37 C 93 21 H 99/58 L 93 09/24/17 12:00 09/24/17 13:00 09/24/17 13:00 09/24/17 13:00 09/24/17 13:00 Microbiology 09/22/17 17:54 Gram Stain - Final Peritoneal Fluid - Aspirate 09/23/17 10:00 Gram Stain - Final Bile - Other 09/21/17 19:30 Blood Culture - Final Blood Enterobacter Cloacae Blood Panel (PCR) - Final Enterobacter Cloacae Complex 09/21/17 19:52 Blood Culture - Final Blood Enterobacter Cloacae Laboratory Results 09/24/17 04:30 09/24/17 04:30 09/23/17 09/24/17 09/25/17 05:59 05:59 05:59 Intake Total 5015 3070 Output Total 8130 1455 200 Balance -3115 1615 -200 - Physical Exam General Appearance: other (weak, answers questions. jaundiced) EENT: scleral icterus Respiratory: lungs clear Cardiac/Chest: tachycardia Abdomen: normal bowel sounds, distended, other (biliary drain noted. nontender to mild palpatoin) Skin: No erythema ICD10 Worksheet Patient Problems: Problems Problem Status Onset Elevated serum lactate dehydrogenase Acute Hypotension Acute Liver cancer, primary, with metastasis from liver to other site Acute Pneumonia Acute Severe sepsis Acute
--- NOTE | 2017-09-24 14:53 | HOSPPROG ---
Hospitalist Progress Note Assessment/Plan: # septic shock - d/t enterobacter bacteremia - currently on levophed and vasopressin - titrating down # enterobacter cloacae bacteremia - d/t biliary obstruction - now with biliary drain; bilirubin higher today - follow # liver failure d/t HCV - followed at - marked elevation in LFTs - bili higher but AST lower - c/b coagulopathy, thrombocytopenia # marked thrombocytopenia - d/t portal hypertension and sepsis - hold AC today # HCC - currently on immunotherapy # lactic acidosis - d/t sepsis and liver failure # renal failure - d/t sepsis vs HRS - renal involved - following closely for CRRT - does not need currently # social - had significant discussions with family. They are leaning toward comfort care. They made decide this today or tomorrow. Subjective: Worsening cognitive function. Still on pressors Objective: Vital Signs Temp Pulse Resp BP Pulse Ox 37 C 94 20 111/63 91 L 09/24/17 12:00 09/24/17 14:00 09/24/17 14:00 09/24/17 14:00 09/24/17 14:00 Microbiology 09/23/17 10:00 Gram Stain - Final Bile - Other 09/22/17 17:54 Gram Stain - Final Peritoneal Fluid - Aspirate 09/21/17 19:30 Blood Culture - Final Blood Enterobacter Cloacae Blood Panel (PCR) - Final Enterobacter Cloacae Complex 09/21/17 19:52 Blood Culture - Final Blood Enterobacter Cloacae Laboratory Results 09/24/17 04:30 09/23/17 09/24/17 09/25/17 05:59 05:59 05:59 Intake Total 5015 3070 Output Total 8130 1455 200 Balance -3115 1615 -200 PT 24.8 SEC (12.0-15.0) H 09/24/17 04:30 INR 2.24 (0.83-1.16) H 09/24/17 04:30 - Time Spent With Patient Time Spent with Patient: greater than 35 minutes (Discussing prognosis) Time Spent with Patient: Greater than 35 minutes spent on this patients care, greater than 50% of time spent counseling, educating, and coordinating care regarding the above mentioned plan. - Physical Exam Constitutional: chronically ill appearing Eyes: icteric sclera Ears, Nose, Mouth, Throat: dry mucous membranes Cardiovascular: regular rate and rhythym, no murmur, rub, or gallop Respiratory: no respiratory distress, no rales or rhonchi, clear to auscultation Gastrointestinal: ascites, distension Neurologic: No AAOx3 Psychiatric: encephalopathic ICD10 Worksheet Patient Problems: Problems Problem Status Onset Elevated serum lactate dehydrogenase Acute Hypotension Acute Liver cancer, primary, with metastasis from liver to other site Acute Pneumonia Acute Severe sepsis Acute
[2017-09-24] MEDS ORDERED: ALBUMIN 25% 200 ML IV ONE (15:09)
[2017-09-24] MEDS: morphINE 10 MG/0.5 ML UDSYR PO PRN ×2 (18:12→21:27)
[2017-09-24] MEDS ORDERED: chlorproMAZINE HCL 50 MG in NS 50 ML IV ONE (18:13)
[2017-09-25] MEDS: morphINE 10 MG/0.5 ML UDSYR PO PRN ×5 (04:05→15:53)
[2017-09-25] MEDS: VASOPRESSIN/DEXTROSE 250 ML IV SCH (04:08)
[2017-09-25 05:29] LABS: INR 2.35 (0.83-1.16); PLATELET COUNT 18 10^3/uL (150-400); PROTIME(PATIENT) 25.7 SEC (12.0-15.0)
[2017-09-25 10:11] VITALS: TEMP 97.7
[2017-09-25] MEDS: PANTOPRAZOLE SODIUM 40 MG VIAL IVP SCH (10:22)
[2017-09-25] MEDS: LACTULOSE 20 GM/30 ML UDCUP PO SCH (10:22)
[2017-09-25] MEDS: ERTAPENEM 1 GM VIAL IVP SCH (10:23)
--- NOTE | 2017-09-25 11:15 | PDINTPN ---
Angle Shearer Progress Note Assessment/Plan: Assessment: Enterobacter Sepsis: Likely Biliary source, now s/p drain. Weaning pressors, BP falling. Hepatocellular Carcinoma Biliary Obstruction: Due to malignancy. S/P stent on left, drain on right. SHAILESH: Urine output falling with reduced pressors, BP despite I>O. Cr up a bit. Hypotension: Due to sepsis. On NE at 6, COMMERCIAL SHRIMPING CAPTAIN 0.2. Plan: Plan for transfer to home with hospice. Weaning NE/COMMERCIAL SHRIMPING CAPTAIN off today, it's possible he won't survive to transport once off pressors, oxygen. Multiple discussions with RN, palliative, family. 09/25/17 11:12 09/25/17 11:15 Subjective: Less responsive Objective: Vital Signs Temp Pulse Resp BP Pulse Ox 36.5 C 93 18 77/54 L 93 09/25/17 08:00 09/25/17 10:00 09/25/17 10:00 09/25/17 10:00 09/25/17 10:00 Microbiology 09/22/17 17:54 Gram Stain - Final Peritoneal Fluid - Aspirate Body Fluid Culture - Final 09/23/17 10:00 Gram Stain - Final Bile - Other 09/21/17 19:30 Blood Culture - Final Blood Enterobacter Cloacae Blood Panel (PCR) - Final Enterobacter Cloacae Complex 09/21/17 19:52 Blood Culture - Final Blood Enterobacter Cloacae Laboratory Results 09/25/17 05:10 09/25/17 05:10 09/24/17 09/25/17 09/26/17 05:59 05:59 05:59 Intake Total 3070 2972.9 Output Total 1455 910 Balance 1615 2062.9 PT 25.7 SEC (12.0-15.0) H 09/25/17 05:10 INR 2.35 (0.83-1.16) H 09/25/17 05:10 Physical Exam - Physical Exam General Appearance: unresponsive, No alert Skin: jaundice Neuro/Psych: No alert ICD10 Worksheet Patient Problems: Problems Problem Status Onset Elevated serum lactate dehydrogenase Acute Hypotension Acute Liver cancer, primary, with metastasis from liver to other site Acute Pneumonia Acute Severe sepsis Acute
[2017-09-25] MEDS: TAMSULOSIN HCL 0.4 MG CAP PO SCH (12:21)
[2017-09-25] MEDS: PHYTONADIONE 2.5 MG/2.5 ML ORAL UDL PO SCH (12:21)
[2017-09-25] MEDS: RIFAXIMIN 550 MG TAB PO SCH (12:21)
--- NOTE | 2017-09-25 13:01 | SOAPPROG ---
SOAP Progress Note Assessment/Plan: Assessment/Plan: 1. Sepsis with bacteremia; suspect from blockage of his right IH biliary system, from progressing hepatocellular cancer (especially as his bile from his drain is growing a gram negative annette). External drain in place. 2. Elevated TB. - long discussion with family, regarding level of care. They wish to make him comfort care/hospice. - else, as per critical care. Will sign off. Thanks! 09/25/17 12:58 Subjective: cc: sepsis Continues to show signs of multi-organ failure. No rigors, sweats, chills. Family has decided on comfort care/hospice. Objective: Vital Signs Temp Pulse Resp BP Pulse Ox 36.5 C 99 25 H 68/40 L 84 L 09/25/17 08:00 09/25/17 12:00 09/25/17 12:00 09/25/17 12:00 09/25/17 12:00 Microbiology 09/22/17 17:54 Gram Stain - Final Peritoneal Fluid - Aspirate Body Fluid Culture - Final 09/23/17 10:00 Gram Stain - Final Bile - Other 09/21/17 19:30 Blood Culture - Final Blood Enterobacter Cloacae Blood Panel (PCR) - Final Enterobacter Cloacae Complex 09/21/17 19:52 Blood Culture - Final Blood Enterobacter Cloacae Laboratory Results 09/25/17 05:10 09/25/17 05:10 09/24/17 09/25/17 09/26/17 05:59 05:59 05:59 Intake Total 3070 2972.9 Output Total 1455 910 Balance 1615 2062.9 PT 25.7 SEC (12.0-15.0) H 09/25/17 05:10 INR 2.35 (0.83-1.16) H 09/25/17 05:10 Physical Exam - Physical Exam General Appearance: cachetic, thin EENT: PERRL/EOMI, normal ENT inspection, pharynx normal, TMs normal, scleral icterus (R), scleral icterus (L) Neck: non-tender, full range of motion, supple, normal inspection Respiratory: chest non-tender, lungs clear, normal breath sounds Cardiac/Chest: normal peripheral pulses, regular rate, rhythm Peripheral Pulses: 2+: carotid (R), carotid (L), femoral (R), femoral (L), dorsalis-pedis (R), dorsalis-pedis (L) Abdomen: normal bowel sounds, non-tender, soft Male Genitalia: deferred Rectal: deferred Back: Normal inspection Skin: warm/dry, jaundice Lymphatic: no adenopathy Extremities: normal range of motion, non-tender, normal inspection, normal capillary refill Neuro/Psych: no motor/sensory deficits, motor weakness ICD10 Worksheet Patient Problems: Problems Problem Status Onset Elevated serum lactate dehydrogenase Acute Hypotension Acute Liver cancer, primary, with metastasis from liver to other site Acute Pneumonia Acute Severe sepsis Acute
--- NOTE | 2017-09-25 13:33 | HOSPPROG ---
Hospitalist Progress Note Assessment/Plan: # septic shock - d/t enterobacter bacteremia - currently on levophed and vasopressin - titrating down # enterobacter cloacae bacteremia - d/t biliary obstruction - now with biliary drain; bilirubin higher today - follow # liver failure d/t HCV - followed at - marked elevation in LFTs - bili higher but AST lower - c/b coagulopathy, thrombocytopenia # marked thrombocytopenia - d/t portal hypertension and sepsis - hold AC today # HCC - currently on immunotherapy # lactic acidosis - d/t sepsis and liver failure # renal failure - d/t sepsis vs HRS - renal involved - following closely for CRRT - does not need currently # social - had significant discussions with family. Will transition to comfort care. Weaning off pressors to see if he can go home. If not may need to in that full comfort care here and have him pass here Subjective: Appears comfortable Objective: Vital Signs Temp Pulse Resp BP Pulse Ox 36.5 C 99 25 H 68/40 L 84 L 09/25/17 08:00 09/25/17 12:00 09/25/17 12:00 09/25/17 12:00 09/25/17 12:00 Microbiology 09/22/17 17:54 Gram Stain - Final Peritoneal Fluid - Aspirate Body Fluid Culture - Final 09/23/17 10:00 Gram Stain - Final Bile - Other 09/21/17 19:30 Blood Culture - Final Blood Enterobacter Cloacae Blood Panel (PCR) - Final Enterobacter Cloacae Complex 09/21/17 19:52 Blood Culture - Final Blood Enterobacter Cloacae Laboratory Results 09/25/17 05:10 09/25/17 05:10 09/24/17 09/25/17 09/26/17 05:59 05:59 05:59 Intake Total 3070 2972.9 Output Total 1455 910 Balance 1615 2062.9 PT 25.7 SEC (12.0-15.0) H 09/25/17 05:10 INR 2.35 (0.83-1.16) H 09/25/17 05:10 - Time Spent With Patient Time Spent with Patient: greater than 35 minutes (Discussing plan of care in transition to hospice) Time Spent with Patient: Greater than 35 minutes spent on this patients care, greater than 50% of time spent counseling, educating, and coordinating care regarding the above mentioned plan. - Physical Exam Constitutional: no apparent distress Eyes: scleral injection Respiratory: no respiratory distress Gastrointestinal: ascites, distension Neurologic: other (Somnolent) ICD10 Worksheet Patient Problems: Problems Problem Status Onset Elevated serum lactate dehydrogenase Acute Hypotension Acute Liver cancer, primary, with metastasis from liver to other site Acute Pneumonia Acute Severe sepsis Acute
--- NOTE | 2017-09-25 14:06 | ASMTCMCOM ---
CM Note CM Note Notes: Patient and his family have decided to return home with hospice. Patient to be d/c'ed today. Sent referral to Erik who came out and met with family at 12:00 noon today. The MDPOA and MOST forms were completed. Erik is able to get the equipment to the patient's home today. Transportation was arranged with [facility] who will cherry picker operator the patient at 4:00 (16:00) today. CM available for any other d/c needs that may arise. Date Signed: 09/25/2017 02:05 PM Electronically Signed By:Tamie Vazquez LCSW
[2017-09-25] MEDS ORDERED: NS 250 ML IV ONE (14:45)
[2017-09-25 16:16] VITALS: BP 55/34; PULSE 78; RESP 20; O2SAT 84
--- NOTE | 2017-09-26 16:50 | ASDISCHSUM ---
Discharge Information Plan Status:Has needs-TBD Medically Cleared to Leave: Discharge Date:09/25/2017 04:15 PM CM D/C Disposition:Hospice Home ADT D/C Disposition:Hospice Home Projected Discharge Date:09/25/2017 11:00 AM Transportation at D/C:ALS/BLS Discharge Delay Reason: Follow-Up Date:09/25/2017 11:00 AM Discharge Slot: Final Diagnosis:Septic shock, Obs biliary system, Abd distension Placement Information Referral Type:*Hospice Referral ID:[id number] Provider Name:[facility] Address 1:[address] Phone Number: Address 2: Fax Number: City:[place] Selection Factors: State:[place] Patient Contact Information Contact Name:GENIE Relationship: Address:[address] City:[place] Alternate Phone: State/Zip Code:[place] [address] Email: Financial Information Financial Class: Primary Plan Desc:MEDICARE INPATIENT Primary Plan Number:[id number] Secondary Plan Desc:[facility] Secondary Plan Number:[id number] Assessment Information [facility] CM Progress Note CM Note CM Note Notes: 67 year old male admitted for SOB, Abd distension, Obs Biliary system, Septic shock. He has a hx of Hep C, Esophageal varices, GERD. May not need dialysis. Lives with his , Marge. CM to follow. Date Signed: 09/22/2017 03:00 PM Electronically Signed By:Deysi Greene LCSW [facility] CM Progress Note CM Note CM Note Notes: Patient doing better today/MD's in ICU Rounds. Spoke with patient's and daughter. Talked about Therapy evaluating for discharge needs. They may recommend SNF or HC? Gave them resources- [employer]. Briefly talked about Palliative Care/Hospice. She is interested in finding a private duty agency to be with patient at home. Date Signed: 09/23/2017 03:59 PM Electronically Signed By:Deysi Greene LCSW [facility] CM Progress Note CM Note CM Note Notes: Patient and his family have decided to return home with hospice. Patient to be d/c'ed today. Sent referral to Erik who came out and met with family at 12:00 noon today. The MDPOA and MOST forms were completed. Erik is able to get the equipment to the patient's home today. Transportation was arranged with [place] who will last picker the patient at 4:00 (16:00) today. CM available for any other d/c needs that may arise. Date Signed: 09/25/2017 02:05 PM Electronically Signed By:Tamie Vazquez LCSW Intervention Information Intervention Type:*IM-Signed Date of Service:09/25/2017 03:38 PM Patient Type:Inpatient Staff Member:Pattie Garcia Hours: Discipline: Severity: Comment:
== END 2017-09-25 16:15 | disposition hospice, home (50) | DRG 871 ==
LOC: F2N 21:19
PROVIDERS: ADMIT Internal Medicine; ATTEND Internal Medicine
PROC: 30233K1 Transfusion of Nonautologous Frozen Plasma into Peripheral Vein, Percutaneous Approach (ICD-10-PCS; 2017-09-21)
PROC: 3E033XZ Introduction of Vasopressor into Peripheral Vein, Percutaneous Approach (ICD-10-PCS; 2017-09-21)
PROC: BF101ZZ Fluoroscopy of Bile Ducts using Low Osmolar Contrast (ICD-10-PCS; principal; 2017-09-22)
PROC: 02HV33Z Insertion of Infusion Device into Superior Vena Cava, Percutaneous Approach (ICD-10-PCS; principal; 2017-09-22)
PROC: 0F9530Z Drainage of Right Hepatic Duct with Drainage Device, Percutaneous Approach (ICD-10-PCS; principal; 2017-09-22)
PROC: 0W9G4ZZ Drainage of Peritoneal Cavity, Percutaneous Endoscopic Approach (ICD-10-PCS; principal; 2017-09-22)
DX: A41.59 Other Gram-negative sepsis (principal); R65.21 Severe sepsis with septic shock; E87.2 Acidosis; K83.0 Cholangitis; N17.0 Acute kidney failure with tubular necrosis; C22.0 Liver cell carcinoma; C78.7 Secondary malignant neoplasm of liver and intrahepatic bile duct; B18.2 Chronic viral hepatitis C; K74.69 Other cirrhosis of liver; R18.8 Other ascites; D69.59 Other secondary thrombocytopenia; I85.00 Esophageal varices without bleeding; K76.6 Portal hypertension; I82.C21 Chronic embolism and thrombosis of right internal jugular vein; E87.1 Hypo-osmolality and hyponatremia; E87.6 Hypokalemia; K21.0 Gastro-esophageal reflux disease with esophagitis; E03.9 Hypothyroidism, unspecified
CPT/HCPCS: 82947-QW; 97163-GP; C1729; C1751; C1769; G8978-GP-CM; G8979-GP-CL; J0610; J1170; J1335; J1644; J1940; J2060; J2250; J2310; J3010; J3230; J3370; P9016; P9017; P9047; Q9967